=== PATIENT | female | born 1940 | race Caucasian/White ===

== ENCOUNTER → 2023-11-07 14:10 | Outpatient (REF) | payer MEDICARE, SELFPAY | LOC: RAD 14:10 | PROVIDERS: ATTENDING PHYSICIAN Podiatrist Foot & Ankle Surgery; FAMILY PHYSICIAN Family Medicine | DX: E11.621 Type 2 diabetes mellitus with foot ulcer (principal); L97.522 Non-pressure chronic ulcer of other part of left foot with fat layer exposed | CPT/HCPCS: 93922; 93925 ==

== ENCOUNTER 2024-03-26 20:22 | Emergency (ER) | payer MEDICARE, SELFPAY ==
[2024-03-26 20:31] VITALS: BP 115/78
[2024-03-26] MEDS: KEFLEX 500 MG PO (22:44)
[2024-03-26 22:46] VITALS: BP 115/66
--- NOTE | 2024-03-26 22:55 | ED.SKININJ ---
HPI-Injury
General
Chief Complaint: Skin Surface Trauma
Source: patient
Exam Limitations: none
Time Seen by Provider: 03/26/24 22:13
Nursing documentation reviewed up to this point in time: agreed with
History of Present Illness-Injury
Is this injury a work related problem?: No
Is pt an associate of [facility]?: No
Initial Injury comments:
Table leaf accidentally fell onto her leg. She sustained a skin tear to left morales. Went to but was referred to ED. Brought self to ED for eval.
Past History
Past History
ED Past Medical History: CAD, HTN, Hypercholesterolemia, NIDDM and Other (Left carotid stenosis, bilateral subclavian artery stenosis 75% with the right subclavian with surgical mesh placed, on Plavix and Prednisone 5 mg daily since)
ED Past Surgical History: Other (L Carotid surg,bilateral subclavian artery stenosis 75% with the right subclavian with surgical mesh placed, on Plavix and Prednisone 5 mg daily since)
Social History
Tobacco: Former smoker
Alcohol: None
Drug: None
Personal:
Living: alone
Employment: Retired
Family History
Family History: Hypertension
Review of Systems
Review of Systems
Allergies reviewed?: Yes
All Other Systems: ROS reviewed and negative except as documented in HPI and ROS
Constitutional: Reports no symptoms
Musculoskeletal: Reports no symptoms
Skin: Reports other (skin tear left morales)
Neurological: Reports no symptoms
Psychiatric: Reports no symptoms
Skin Exam
Laceration
Left morales:
Length in cm: 4
Orientation: C shaped
Type of Laceration: simple
Any active bleeding?: no active bleeding
Distal skin color and temperature: normal-warm & good color
Normal distal neurovascular exam: Yes
Range of motion: full
Phy Exam
General Physical Exam
General Presentation: well appearing and no apparent distress
General age: appears stated age
General Skin: warm and dry
General Habitus: normal
General Mental: alert
Musculoskeletal Exam
Musculoskeletal Exam: full ROM (Ambulating without difficulty) and neuro vasc intact
Skin Exam
Skin Exam: normal color, warm/dry, no rash and laceration (skin tear left morales)
Psychiatric Exam
Psychiatric Exam: normal mood/affect
Course
Orders/Labs/Results
Orders:
Orders
03/26/24 22:41
Cephalexin Monohydrate [Keflex] 500 mg PO NOW STA
Vital Signs
Initial and Last Documented VS:
Initial Vital Signs
Temp Pulse Resp BP Pulse Ox
98.2 F 75 19 115/78 93
03/26/24 20:31 03/26/24 20:31 03/26/24 20:31 03/26/24 20:31 03/26/24 20:31
Last Documented Vital Signs
Temp Pulse Resp BP Pulse Ox
98.2 F 70 18 115/66 97
03/26/24 20:31 03/26/24 22:46 03/26/24 22:46 03/26/24 22:46 03/26/24 22:46
Procedures
Laceration Closure
Left Morales:
Status of Wound: clean
Description of Wound Edges: sharp
Preparation: cleaned with saline and cleaned with Betadine
Anesthesia: 1% Lidocaine
Revision/Debridement: routine- no revision
Wound exploration: explored to base- no FB and no tendon involvement
Type of Closure: single layer closure
Skin Closure Material: 4-0 prolene
*Critical Care Note
Total Time (30-74mins, 75-104mins- exclusive of procedures): Not Applicable
ED Attending Note
-
Portions of this chart may have been created with voice recognition software.� Occasional wrong word or��sound alike� substitutions may have occurred due to the inherent limitations of voice recognition software.
Discharge Plan
Departure
Patient Disposition: Home (Routine Discharge)
Date of Disposition: 03/26/24
Time of Disposition: 22:36
Patient with high blood pressure during this ER visit?: No
Condition: Good
Covid-19: Not Applicable
Discharge Problem:
Skin tear of left lower leg without complication
Instructions: Laceration Repair With Stitches (DC)
Prescriptions:
New
cephalexin 500 mg capsule
500 mg PO BID 7 Days Qty: 14 0RF
No Action
cholecalciferol (vitamin D3) 1,000 UNITS tablet
2,000 units PO DAILY
nitroglycerin 0.4 MG tablet, sublingual
0.4 mg sublingual [id number] PRN (Reason: chest pain ) Qty: 25 0RF
aspirin 81 MG tablet,chewable
81 mg PO DAILY 0RF
clopidogrel 75 MG tablet
75 mg PO DAILY Qty: 30 2RF
carvedilol 3.125 MG tablet
12.5 mg PO BID
prednisone 5 MG tablet
5 mg PO DAILY
acarbose 25 MG tablet
25 mg PO BID
tamsulosin 0.4 MG capsule
0.4 mg PO DAILY Qty: 14 0RF
oxycodone 5 mg tablet
5 mg PO Q8H PRN (Reason: pain) Qty: 10 0RF
ondansetron 4 mg tablet,disintegrating
4 mg PO Q8H 5 Days Qty: 15 0RF
cephalexin 500 mg capsule
500 mg PO TID 7 Days Qty: 21 0RF
Activity Restrictions/Additional Instructions:
Sutures can be removed in 7-10 days.
Interventions
Interventions:
*Risk Screen - Suicide Last Done: 03/26/24 22:46
*General Assessment Last Done: 03/26/24 22:46
*Neglect/Abuse Screening Last Done: 03/26/24 22:46
ED- Fall Risk Assessment Last Done: 03/26/24 22:46
*ED COVID-19 Vaccine History Last Done: 03/26/24 22:46
*Nursing Disposition Last Done: 03/26/24 22:46
ED-Skin Assessment Last Done: 03/26/24 22:46
Discharge Date and Time
Discharge Date/Time: 03/26/24 22:48
Print Language: TAJIK
== END 2024-03-26 22:48 | disposition home or self-care (01) ==
LOC: EMR 20:22
PROVIDERS: EMERGENCY PHYSICIAN Emergency Medicine; FAMILY PHYSICIAN Family Medicine
DX: S81.812A Laceration without foreign body, left lower leg, initial encounter (principal); W19.XXXA Unspecified fall, initial encounter; I25.10 Atherosclerotic heart disease of native coronary artery without angina pectoris; I65.22 Occlusion and stenosis of left carotid artery; I10 Essential (primary) hypertension; E78.00 Pure hypercholesterolemia, unspecified; E11.9 Type 2 diabetes mellitus without complications; Z87.891 Personal history of nicotine dependence
CPT/HCPCS: 99282; 12001

== ENCOUNTER 2024-05-27 10:33 | Emergency (ER) | payer MEDICARE, SELFPAY ==
[2024-05-27 10:37] VITALS: BP 173/74
[2024-05-27 11:06] VITALS: BP 163/60; BMI 34.6
--- NOTE | 2024-05-27 11:19 | ED.GENMED ---
History of Present Illness
General
Chief Complaint: Fall
Time Seen by Provider: 05/27/24 10:44
History of Present Illness
History of Present Illness:
84-year-old female with history of CAD status post stenting, hypertension, diabetes presenting after a fall. Patient reports prior arrival she tripped on a porch and fell forward onto her left ribs. Denies head injury or loss of consciousness.
Reports shortness of breath secondary to pain with deep inspiration. Also reports that she hit her extremity, suffer a skin tear. Tetanus is not up-to-date. She has been able to ambulate. Denies weakness or numbness or tingling to her
extremities. Denies neck pain. Denies visual changes. Denies additional medical complaints.
Past History
Past History
ED Past Medical History: CAD, HTN, Hypercholesterolemia, NIDDM and Other (Left carotid stenosis, bilateral subclavian artery stenosis 75% with the right subclavian with surgical mesh placed, on Plavix and Prednisone 5 mg daily since)
ED Past Surgical History: Other (L Carotid surg,bilateral subclavian artery stenosis 75% with the right subclavian with surgical mesh placed, on Plavix and Prednisone 5 mg daily since)
Social History
Tobacco: Former smoker
Alcohol: None
Drug: None
Personal:
Living: alone
Employment: Retired
Family History
Family History: Hypertension
Phy Exam
Physical Exam
Physical Exam:
General: Well-appearing, no clinical signs of dehydration, nontoxic and in no acute distress
HEENT: protecting airway
Neck: appears supple
CV: Normal heart rate, regular rhythm
Resp: No accessory muscle use, no increased work of breathing, lungs clear to auscultation bilaterally. Generalized tenderness to the left chest wall, anterior, mid axillary, inferior rib angles. No ecchymosis. No crepitus.
Abd: Soft and non-distended, no tenderness to palpation, normal bowel sounds
Extremities: No deformities, no swelling, no erythema, pulses and sensation intact
Neuro: alert, no focal neurologic deficit
: deferred
Rectal: deferred
Psych: Normal affect
Skin: Mild skin tear at the left morales with bleeding controlled.
Course
Orders/Labs/Results
Orders:
Orders
05/27/24 10:52
CT Chest With Iv Contrast Urgent
Comment:
Reason For Exam: fall, L-chest and rib pain
05/27/24 10:53
Electrocardiogram (*1) Stat
Reason for Study: Other
Other Reason for Exam: chest pain
EKG- Treatment ONCE
05/27/24 10:54
Ketorolac [Toradol] 15 mg IV NOW STA
05/27/24 11:23
Complete Blood Count/With Diff Urgent
Comprehensive Metabolic Panel Urgent
Troponin I Urgent
Abnormal Lab Results
05/27/24
11:23
RBC 3.58 L 10^6/uL
(4.20-5.40)
Hgb 11.7 L g/dL
(12.0-16.0)
Hct 33.8 L %
(37.0-47.0)
MCH 32.7 H pg
(27.0-31.0)
MPV 11.9 H fL
(7.4-10.4)
Absolute Lymphs (auto) 0.6 L 10^3/uL
(1.2-3.4)
Immature Gran % 0.6 H %
(0-0.5)
Neutrophils % 80.2 H %
(42.2-75.2)
Lymphocytes % 9.5 L %
(20.5-51.1)
Glucose 240 H mg/dl
(70-99)
Total Protein 6.1 L g/dl
(6.3-8.2)
05/27/24 11:23
05/27/24 11:23
Vital Signs
Initial and Last Documented VS:
Initial Vital Signs
Temp Pulse Resp BP Pulse Ox
97.8 F 70 18 173/74 97
05/27/24 10:37 05/27/24 10:37 05/27/24 10:37 05/27/24 10:37 05/27/24 10:37
Last Documented Vital Signs
Temp Pulse Resp BP Pulse Ox
97.8 F 57 18 171/52 94
05/27/24 10:37 05/27/24 12:06 05/27/24 12:06 05/27/24 12:06 05/27/24 12:06
MDM/Problems Addressed
MDM/Problems Addressed:
84-year-old female with history of CAD status post stenting, hypertension presenting after a mechanical fall with left-sided chest and rib pain. Vital signs are significant for high blood pressure.
On exam, patient well-appearing, no acute distress or discomfort. No respiratory distress. Primary survey is intact. On secondary survey, no signs of head trauma, no cervical tenderness. GCS is 15. Generalized tenderness to the left chest wall
at the anterior region, mid axillary region and inferior rib angles. No crepitus. Suspect rib contusion versus rib fracture. Patient notes chest pain, suspect secondary to rib injury. Given cardiac history, EKG obtained, nonischemic. Will
screen with laboratory analysis. Patient is declining tetanus vaccination at this time. Toradol administered for pain. No significant signs of injuries to the abdomen/pelvis/extremities
14:00 -patient CT without acute pathology. No significant fractured ribs or lung injury. Labs unremarkable. Incidental pulmonary nodule which patient is aware of. Feel stable for discharge with continued outpatient supportive therapy. Will
provide incentive spirometry. Otherwise feel stable for discharge. Return precautions discussed and patient verbalized understanding
*EKG
Interpreted by ED Provider?: Yes
EKG Intrepretation Date: 05/27/24
EKG Intrepretation Time: 11:26
Interpretation: normal
Comparison EKG: no changes
Heart Rate: 64
Rate: normal
Rhythm: sinus
[place]: normal axis
Interval: normal interval
QRS Pattern: normal QRS
Ischemia: no ischemia
*Critical Care Note
Total Time (30-74mins, 75-104mins- exclusive of procedures): Not Applicable
ED Attending Note
-
Portions of this chart may have been created with voice recognition software.� Occasional wrong word or��sound alike� substitutions may have occurred due to the inherent limitations of voice recognition software.
Discharge Plan
Departure
Prescriptions:
No Action
cholecalciferol (vitamin D3) 1,000 UNITS tablet
2,000 units PO DAILY
nitroglycerin 0.4 MG tablet, sublingual
0.4 mg sublingual [id number] PRN (Reason: chest pain ) Qty: 25 0RF
aspirin 81 MG tablet,chewable
81 mg PO DAILY 0RF
clopidogrel 75 MG tablet
75 mg PO DAILY Qty: 30 2RF
carvedilol 3.125 MG tablet
12.5 mg PO BID
prednisone 5 MG tablet
5 mg PO DAILY
acarbose 25 MG tablet
25 mg PO BID
tamsulosin 0.4 MG capsule
0.4 mg PO DAILY Qty: 14 0RF
oxycodone 5 mg tablet
5 mg PO Q8H PRN (Reason: pain) Qty: 10 0RF
ondansetron 4 mg tablet,disintegrating
4 mg PO Q8H 5 Days Qty: 15 0RF
cephalexin 500 mg capsule
500 mg PO TID 7 Days Qty: 21 0RF
cephalexin 500 mg capsule
500 mg PO BID 7 Days Qty: 14 0RF
Referrals:
Lui Cherry MD [Family Provider] -
Interventions
Interventions:
*Risk Screen - Suicide Last Done: 05/27/24 11:06
*General Assessment Last Done: 05/27/24 11:06
*Neglect/Abuse Screening Last Done: 05/27/24 11:06
ED- Fall Risk Assessment Last Done: 05/27/24 11:06
*ED COVID-19 Vaccine History Last Done: 05/27/24 11:06
ED-Musculoskeletal Assessment Last Done: 05/27/24 11:06
ED- Neurological Assessment Last Done: 05/27/24 11:06
ED-Skin Assessment Last Done: 05/27/24 11:06
Discharge Date and Time
Print Language: TURKISH
[2024-05-27] MEDS: TORADOL 15 MG IV (11:25)
[2024-05-27 11:39] LABS: % Basophils 0.6 % (0-2); % Eosinophils 1.7 % (0-6); % Immature Granulocytes 0.6 % (0-0.5); % Lymphocytes 9.5 % (20.5-51.1); % Monocytes 7.4 % (1.7-9.3); % Neutrophils 80.2 % (42.2-75.2); Absolute Eosinophils 0.1 10^3/uL (0-0.7); Absolute Lymphocytes 0.6 10^3/uL (1.2-3.4); Absolute Monocytes 0.5 10^3/uL (0.1-0.6); Absolute Neutrophils 5.3 10^3/uL (1.4-6.5); Hematocrit 33.8 % (37.0-47.0); Hemoglobin 11.7 g/dL (12.0-16.0); Mean Corp Hgb Conc. 34.6 g/dL (33.0-37.0); Mean Corpuscular Hgb 32.7 pg (27.0-31.0); Mean Corpuscular Volume 94.4 fL (81.0-99.0); Mean Platelet Volume 11.9 fL (7.4-10.4); Nucleated Red Blood Cells % 0 %; Platelet Count 170 10^3/uL (130-400); Red Blood Cell Count 3.58 10^6/uL (4.20-5.40); Red Cell Dist. Width 13.3 % (11.5-14.5); White Blood Cell Count 6.6 10^3/uL (4.8-10.8)
[2024-05-27 11:51] LABS: ALT (SGPT) 17 U/L (0-35); AST (SGOT) 22 U/L (14-36); Albumin 3.9 g/dl (3.5-5.0); Alkaline Phosphatase 75 U/L (38-126); Blood Urea Nitrogen 8 mg/dl (7-17); Calcium 9.9 mg/dl (8.4-10.2); Carbon Dioxide 27 mmol/L (22-30); Chloride 102 mmol/L (98-107); Estimated Creatinine Clearance 67 ml/min; Glucose 240 mg/dl (70-99); Potassium 4.1 mmol/L (3.5-5.1); Sodium 139 mmol/L (135-145); Total Bilirubin 0.8 mg/dl (0.2-1.3); Total Protein 6.1 g/dl (6.3-8.2); eGFR > 60.00
[2024-05-27 12:03] LABS: Troponin I < 0.012 ng/ml
[2024-05-27 12:06] VITALS: BP 171/52
[2024-05-27 13:00] VITALS: BP 186/55
[2024-05-27 14:00] VITALS: BP 203/72
[2024-05-27 14:11] VITALS: BP 197/65
== END 2024-05-27 14:37 | disposition home or self-care (01) ==
LOC: EMR 10:33
PROVIDERS: EMERGENCY PHYSICIAN Student in an Organized Health Care Education/Training Program; FAMILY PHYSICIAN Family Medicine
DX: S20.20XA Contusion of thorax, unspecified, initial encounter (principal); W19.XXXA Unspecified fall, initial encounter; I25.10 Atherosclerotic heart disease of native coronary artery without angina pectoris; I10 Essential (primary) hypertension; E11.9 Type 2 diabetes mellitus without complications; E78.00 Pure hypercholesterolemia, unspecified; Z82.49 Family history of ischemic heart disease and other diseases of the circulatory system; Z87.891 Personal history of nicotine dependence; Z95.5 Presence of coronary angioplasty implant and graft
CPT/HCPCS: 99284; 71260; 80053; 84484; 85025; 93005; Q9967

== ENCOUNTER 2024-09-11 23:57 | Observation (INO) | payer MEDICARE, SELFPAY ==
[2024-09-11] VITALS (9 sets, daily range): BP systolic 166–224; BP diastolic 57–100; PULSE 69–76; BMI 33.2
--- NOTE | 2024-09-11 19:00 | ED.GENMED ---
History of Present Illness
General
Chief Complaint: Dizziness
Source: patient
Exam Limitations: none
Time Seen by Provider: 09/11/24 18:48
History of Present Illness
History of Present Illness:
This is a 84 year old female that comes in by ambulance with c/o dizziness and vomiting. States that she had COVID on Sep 06 and tested negative today. States that she started at 4pm today with vomiting and the room spinning around 4pm. States that
she vomited about 4 times. Denies any fever, chills, chest pain, SOB, abd pain, diarrhea, headache, urinary burning.
Past History
Past History
ED Past Medical History: CAD, GERD, HTN, Hypercholesterolemia, NIDDM, MD, Psychiatric (Anxiety, ) and Other (UTi, )
ED Past Surgical History: Cardiac (Stents x 2), Orthopedic ( bilateral subclavian artery stenosis 75% with the right subclavian with surgical mesh placed, Left knee replacement) and Other (L Carotid surg, cataracts, )
Social History
Tobacco: Former smoker
Alcohol: Daily (beer X 2)
Drug: None
Personal:
Living: alone
Employment: Retired
Family History
Family History: Hypertension
Review of Systems
Review of Systems
All Other Systems: ROS reviewed and negative except as documented in HPI and ROS
Constitutional: Reports no symptoms; Denies fever or chills
EENT: Reports no symptoms
Respiratory: Reports no symptoms; Denies cough or trouble breathing
Cardiac: Reports no symptoms; Denies chest pain
ABD/GI: Reports nausea and vomiting; Denies abdominal pain or diarrhea
: Reports no symptoms; Denies dysuria, frequency or urgency
Musculoskeletal: Reports no symptoms
Skin: Reports no symptoms
Neurological: Reports dizzy (room spinning); Denies headache
Psychiatric: Reports no symptoms
Phy Exam
General Physical Exam
General Presentation: no apparent distress
General age: appears stated age
General Skin: warm and dry
General Habitus: elderly
General Mental: alert
General Hydration: dry mucous membranes
ENT Exam
ENT Exam: TM's normal, pharynx normal and neck supple
Eye Exam
Eye Exam: EOMI
Cardiovascular Exam
Cardiovascular Exam: regular rate/rhythm, no edema, no murmur and normal peripheral pulses
Pulmonary Exam
Pulmonary Exam: lungs clear, no respiratory distress, no rales, chest non tender, no crackles, no rhonchi, no wheezing and no cough
Gastrointestinal Exam
Gastrointestinal Exam: normal bowel sounds, non tender, soft, no organomegaly, no pulsatile mass and non distended
NIH Stroke Score
Level of Consciousness: 0 - Alert
LOC questions: 0-Answers both correctly
LOC Commands: 0-Performs both correctly
Best Gaze: 0-Normal
Visual Geiger: 1=Partial hemianopia (Right sided, unable to see fingers until almost in front of face)
Facial palsy: 0=Normal, symmetrical
Motor - Right Arm: 0=No drift 10 seconds
Motor - Left Arm: 0=No drift 10 seconds
Motor - Right Le-No drift 5 seconds
Motor - Left Le-No drift 5 seconds
Limb Ataxia: 0-Absent
Sensation: 0-Normal
Best Language: 0-No aphasia
Dysarthria: 0-Normal
Extinction and Inattention: 0-No abnormality
Total Score:: 1
Musculoskeletal Exam
Musculoskeletal Exam: full ROM and no edema
Skin Exam
Skin Exam: normal color, warm/dry, no rash and no petechia
Psychiatric Exam
Psychiatric Exam: normal mood/affect
Course
Orders/Labs/Results
Orders:
Orders
09/11/24 18:58
0.9% Sodium Chloride 1000 ml [Nss] 1,000 ml IV BOLUS
Ondansetron Injectable [Zofran] 4 mg IV NOW STA
09/11/24 19:00
CT Head W/o Iv Contrast Urgent
Comment:
Reason For Exam: dizzy
09/11/24 19:01
Meclizine [Antivert] 25 mg PO NOW STA
09/11/24 19:09
Electrocardiogram (*1) Urgent
Reason for Study: Vertigo / Dizzy
EKG- Treatment ONCE
09/11/24 19:40
Complete Blood Count/With Diff Urgent
Comprehensive Metabolic Panel Urgent
Troponin I Urgent
09/11/24 21:35
Carvedilol [Coreg] 12.5 mg PO NOW STA
09/11/24 22:11
Urinalysis Reflex To Culture Urgent
Date Specimen was Collected: 09/11/24
Time Specimen was Collected: 22:08
Urine Microscopic Reflex Cult Urgent
09/11/24 22:31
HydrALAZINE [Apresoline] 5 mg IV NOW STA
09/11/24 22:59
Troponin I Urgent
09/11/24 23:00
Flush (0.9% Sodium Chloride) [Flush (Nss)] See Dose Instructions IV PER PROTOCOL
09/11/24 23:03
Orthostatic Vital Signs As Directed
Orthostatic VS Frequency: Now
09/11/24 23:39
Admit/Transfer Patient As Directed
Co-Sign Provider:
Level of Care: Observation services
Assign to:: Telemetry
Physician / Group: Lory Rios
Diagnosis: vertigo
Reason for Telemetry: Other
Other Reason for Telemetry: acute dizziness
Date to Stop Telemetry: 09/13/24
Time to Stop Telemetry: 11:00
09/11/24 23:40
PRN Pain Medication Management As Directed
May give lesser potent ordered pain med per pt: Yes
preference::
Protocol:: Medication orders for pain may be administered in a
manner that supports deferring to patient preference
when the pt is:
- Requesting an ordered lesser potent pain medication.
Least to most potent pain medications are defined
as: acetaminophen < NSAID < tramadol < opioids
(morphine, oxycodone, hydromorphone).
- Requesting a lesser dose of the same medication IF
ORDERED.
- Requesting a less intrusive route of administration
if both routes are prescribed by the provider (PO <
IV).
09/11/24 23:41
COVID-19 Antigen Urgent
Source: Nasal Swab
09/11/24 23:42
Code Status As Directed
Resuscitation Status: Do not resuscitate
Reached after discussion with pt or family/Healthcare POA: Yes
Decision communicated with: Patient
DNR Bracelet Application ONCE
09/12/24 00:48
Meclizine [Antivert] 25 mg PO Q8HPRN PRN
Nitroglycerin Sublingual [Nitrostat (Sublingual)] 0.4 mg SL [id number] PRN
09/12/24 00:48
Consult Notification Routine
Specialty to Notify: Neurology
NEUROLOGY CONSULT Routine
Consulting Provider: Andrew aMrtínez
Was physician already notified: No
Reason for consult: acute onset dizziness
Activity As Directed
Activity Level: With Assistance
Vital Signs As Directed
Frequency: Per unit guidelines
Physical Therapy Consult [Pt Eval And Treat] Routine
Treatment: vertigo
Activity Level: With Assistance
DX Deep Vein Thrombosis Video Routine
09/12/24 06:00
Basic Metabolic Panel IN AM
Complete Blood Count/No Diff IN AM
09/12/24 08:00
Ascorbic Acid [Vitamin C] 500 mg PO DAILY
Aspirin Chewable [Low Strength Aspirin] 81 mg PO DAILY
Carvedilol [Coreg] 12.5 mg PO BID
Cholecalciferol (Vitamin D3) [VITAMIN D3 (cholecalciferol)] 50 mcg PO DAILY
Clopidogrel Bisulfate [Plavix] 75 mg PO DAILY
Prednisone [Deltasone] 5 mg PO DAILY
acarbose 25 mg PO BID
09/12/24 Dinner
2200 calorie (18 carb) Diabetic
At Your Request: Full Participation
Does patient need a safe tray?: No
09/12/24 18:00
Enoxaparin Sodium [Lovenox] 40 mg SC QPM
09/13/24 11:00
DC Protocol for Telemetry ONCE
Abnormal Lab Results
09/11/24 09/11/24 09/11/24
19:40 22:11 22:57
RBC 3.93 L 10^6/uL
(4.20-5.40)
MCHC 32.9 L g/dL
(33.0-37.0)
MPV 11.0 H fL
(7.4-10.4)
Absolute Lymphs (auto) 0.9 L 10^3/uL
(1.2-3.4)
Lymphocytes % 15.5 L %
(20.5-51.1)
Glucose 172 H mg/dl
(70-99)
Troponin I
Urine Ketones 2+ A
(Negative)
Leukocyte Esterase Rfl Trace A
(Negative)
POC Glucose 198 H mg/dl
(70-99)
09/11/24
22:59
RBC
MCHC
MPV
Absolute Lymphs (auto)
Lymphocytes %
Glucose
Troponin I 0.064 H* D ng/ml
Urine Ketones
Leukocyte Esterase Rfl
POC Glucose
09/11/24 19:40
09/11/24 19:40
Hyperglycemia. (patient is a diabetic), Troponin 0.019
Second Troponin 0.064, Urine negative for infection.
Vital Signs
Initial and Last Documented VS:
Initial Vital Signs
Temp Pulse Resp BP Pulse Ox
97.6 F 65 18 224/62 96
09/11/24 18:43 09/11/24 18:43 09/11/24 18:43 09/11/24 18:43 09/11/24 18:43
Last Documented Vital Signs
Temp Pulse Resp BP Pulse Ox
97.7 F 63 17 140/41 93
09/11/24 19:46 09/12/24 00:45 09/12/24 00:45 09/12/24 00:00 09/12/24 00:30
MDM/Problems Addressed
Differential Diagnosis Includes:
Dehydration, Vertigo, UTI
MDM/Problems Addressed:
This is a 84 year old female that comes in by ambulance with c/o vomiting and dizziness. states that this started at 4pm today.
Will check labs, Urine, Give IV fluids. CT head, Give Antivert, Zofran
Chronic conditions affecting care: CAD
Acute Exacerbation and/or Progression of Chronic Illness:
NA
*Radiology
Radiology exam reviewed: radiology read reviewed (CT head-No acute intracranial abnormality noted)
*Pulse Oximetry
Patient hypoxic: no
*EKG
Interpreted by ED Provider?: Yes
Heart Rate: 67
Rate: normal
Rhythm: sinus
[place]: left axis deviation
Interval: normal interval
QRS Pattern: normal QRS
Ischemia: no ischemia
*Tactical Debriefer Officer Interpretation
Rate: normal
Heart Rate: 64
Rhythm: sinus
*Critical Care Note
Total Time (30-74mins, 75-104mins- exclusive of procedures): Not Applicable
ED Attending Note
-
Portions of this chart may have been created with voice recognition software.� Occasional wrong word or��sound alike� substitutions may have occurred due to the inherent limitations of voice recognition software.
Discharge Plan
Departure
Patient Disposition: Admit
Date of Disposition: 09/11/24
Time of Disposition: 22:32
Admit to: Telemetry
Presentation/result/management discussed w/ accepting MD/DO: Hospitalist
Patient with high blood pressure during this ER visit?: Yes
Condition: Good
Covid-19: Not Applicable
Discharge Problem:
Dizziness
Interventions
Interventions:
*Risk Screen - Suicide Last Done: 09/11/24 18:49
*General Assessment Last Done: 09/11/24 18:49
*Neglect/Abuse Screening Last Done: 09/11/24 18:49
*ED COVID-19 Vaccine History Last Done: 09/11/24 18:49
ED- Neurological Assessment Last Done: 09/11/24 19:52
ED- Cardiac Assessment Last Done: 09/11/24 19:52
ED Swallowing Screen Last Done: 09/11/24 19:56
[2024-09-11] MEDS: NSS 1000 IV (19:45)
[2024-09-11] MEDS: ZOFRAN 4 MG IV (19:48)
[2024-09-11 19:51] LABS: % Basophils 0.4 % (0-2); % Immature Granulocytes 0.2 % (0-0.5); % Lymphocytes 15.5 % (20.5-51.1); % Monocytes 7.7 % (1.7-9.3); % Neutrophils 74.2 % (42.2-75.2); Absolute Eosinophils 0.1 10^3/uL (0-0.7); Absolute Lymphocytes 0.9 10^3/uL (1.2-3.4); Absolute Monocytes 0.4 10^3/uL (0.1-0.6); Absolute Neutrophils 4.1 10^3/uL (1.4-6.5); Hematocrit 37.1 % (37.0-47.0); Hemoglobin 12.2 g/dL (12.0-16.0); Mean Corp Hgb Conc. 32.9 g/dL (33.0-37.0); Mean Corpuscular Volume 94.4 fL (81.0-99.0); Nucleated Red Blood Cells % 0 %; Platelet Count 168 10^3/uL (130-400); Red Blood Cell Count 3.93 10^6/uL (4.20-5.40); Red Cell Dist. Width 14.1 % (11.5-14.5); White Blood Cell Count 5.5 10^3/uL (4.8-10.8)
[2024-09-11] MEDS: ANTIVERT 25 MG PO (19:57)
[2024-09-11 20:05] LABS: ALT (SGPT) 17 U/L (0-35); AST (SGOT) 20 U/L (14-36); Albumin 4.1 g/dl (3.5-5.0); Alkaline Phosphatase 81 U/L (38-126); Blood Urea Nitrogen 10 mg/dl (7-17); Carbon Dioxide 28 mmol/L (22-30); Chloride 101 mmol/L (98-107); Estimated Creatinine Clearance 65 ml/min; Glucose 172 mg/dl (70-99); Potassium 3.9 mmol/L (3.5-5.1); Sodium 137 mmol/L (135-145); Total Bilirubin 0.8 mg/dl (0.2-1.3); Total Protein 6.3 g/dl (6.3-8.2); eGFR > 60.00
[2024-09-11 20:17] LABS: Troponin I 0.019 ng/ml
[2024-09-11] MEDS: COREG 12.5 MG PO (21:59)
[2024-09-11 22:36] LABS: Urine Albumin Negative (Neg - Trace); Urine Bilirubin Negative (Negative); Urine Character Clear (Clear); Urine Color Yellow; Urine Glucose Negative (Negative); Urine Ketone 2+ (Negative); Urine Leukocyte Trace (Negative); Urine Nitrite Negative (Negative); Urine Occult Blood Negative (Negative); Urine Specific Gravity 1.015 (<1.030); Urine Urobilinogen Negative (Neg - 1+)
--- NOTE | 2024-09-11 22:36 | HPS.HSE ---
Addendum entered and electronically signed by Lory Rios, 09/12/24 01:25:
Updates:
#Re: Pulm nodule-pt is aware of this, and has had several CT scans since 1999, and is being followed OP-she discussed with me that she does not want to f/u with PET scan as she states the nodule 'has been followed and stable for years.'
#PMR
-on chronic Prednisone 5 mg daily, will continue
#Trop delta- no CP at this time, possibly demand ischemia due to HTN urgency. BP stable, repeat trop in am.
Addendum entered and electronically signed by Lory Rios, DO 09/12/24 01:13:
Pt is seen and examined. I have reviewed the patient with Dawn, and agree with her history and physical, assessment and plan of care as per below, with following updates:
COVID negative here, no URI symptoms currently. Difficulty walking due to vertigo, improving in ED post meclizine, SBP high in 200s in ED, improving p IV Hydralazine once, plus home BP meds in ED
HTN and otherwise VSS/AF, orthostatics negative
Neuro grossly intact, no focal deficits
CV RRR no m/r/g
Lungs CTA b/l no w/w/r
HEENT 2 beats horizontal nystagmus to the left on exam
Labs reviewed, studies reviewed.
#Pulmonary Nodule:
Upon review of chart, pt noted to have letter sent for patient to follow-up stating:
pulmonary nodule seen on an imaging study done on 05/27/24 in the [facility] Emergency Room.
This was reviewed by the [facility] Pulmonary Nodule Advisory Board and the following recommendation was made:
Recommendation: PET/CT - now and follow up with a Receiver Dispatcher - will sign this out to primary team to follow up and make sure patient is aware to schedule f/u apt. Will require OP Pulm if she has not already seen.
#Dizziness, possibly due to vertigo, post-viral syndrome from COVID, versus due to HTN emergency, less likely neurological etiology
#HTN emergency
-BP improved p hydralazine and Coreg
-cont home meds, monitor
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
-Neuro consultation to address if further imaging (consider MRI brain) pending clinical course
-PT , vertigo PT evaluation
-meclizine prn
Original Note:
Family Physician
-
Family Physician: Lui Cherry
Chief Complaint
-
Dizziness
History of Present Illness
Patient is a 84-year-old female with past medical history significant for hypertension, hyperlipidemia, diabetes, and hx CA who presented to [place] ED for evaluation of acute onset dizziness. Patient stated she was at [facility] with
granddaughter all day, went home feel asleep on couch and when she woke and got up to go to kitchen she had acute onset dizziness with room spinning. During this episode she had an episode of emesis. She then called 911 to bring to ED. While in the
ED she requested to get up to go to the bathroom where she had a second episode of dizziness and room spinning, nursing got back to the stretcher and symptoms have since subsided. Patient states she was positive for covid approximately 1 week ago
and tested today and was negative.
Medical History
Past Medical History
Past Medical History: Reports Other
Additional Past Medical History:
hypertension
hyperlipidemia
diabetes
hx CA
Past Surgical History: Reports Other
Additional Past Surgical History:
Carotid surgery
Subclavian blockage
Left knee replacement
Social History
Tobacco: Former Smoker
Alcohol: Daily (2 beers every night with dinner)
Drug: None
Living: Alone
Employment: Retired
Family History
Family History: Not pertinent
Allergies / Home Medications
Allergies reflects when Allergies were last updated in [facility].
Home Medications with original date entered in [facility]
Allergy/Medication List:
Allergies
Allergy/AdvReac Type Severity Reaction Status Date / Time
acetaminophen [From Tylenol] Allergy 'makes me Verified 09/11/24 18:43
sick to my
stomach'
ciprofloxacin [From Cipro] Allergy Anaphylaxis Verified 09/11/24 18:43
latex [Latex] Allergy Itching Verified 09/11/24 18:43
metformin Allergy muscle Verified 09/11/24 18:43
aches
oxycodone Allergy Nausea / Verified 09/11/24 18:43
Vomiting
Hdsrnkm-PUL-LeK Reductase Allergy RABDO Verified 09/11/24 18:43
Inhibitor
[Ifjxupr-Ldk-Nwe Reductase
Inhibitor]
Sulfa (Sulfonamide Allergy Unknown Verified 09/11/24 18:43
Antibiotics)
sulfamethoxazole Allergy Rash/N/V Verified 09/11/24 18:43
[From Bactrim]
tramadol Allergy Nausea / Verified 09/11/24 18:43
Vomiting
trimethoprim [From Bactrim] Allergy Rash/N/V Verified 09/11/24 18:43
Home Medications
aspirin 81 mg chewable tablet 81 mg PO DAILY 08/03/18
clopidogrel 75 mg tablet 75 mg PO DAILY #30 tabs 08/03/18
nitroglycerin 0.4 mg sublingual tablet 0.4 mg sublingual [id number] PRN chest pain ##25 08/03/18
prednisone 5 mg tablet 5 mg PO DAILY 12/24/19
acarbose 25 mg tablet 25 mg PO BID 03/25/21
ascorbic acid (vitamin C) 500 mg tablet (Vitamin C) 500 mg PO DAILY 09/11/24
carvedilol 12.5 mg tablet 12.5 mg PO BID 09/11/24
cholecalciferol (vitamin D3) 50 mcg (2,000 unit) tablet (Vitamin D3) 50 mcg PO DAILY 09/11/24
Review of Systems
-
History Source: Patient
Constitutional: Reports No Symptoms
EENT: Reports No Symptoms
Respiratory: Reports No Symptoms
Cardiac: Reports No Symptoms
Abdomen/GI: Reports Vomiting
: Reports No Symptoms
Musculoskeletal: Reports No Symptoms
Skin: Reports No Symptoms
Neurological: Reports Dizzy
Endocrine: Reports No Symptoms
Hematologic/Lymphatic: Reports No Symptoms
Psych: Reports No Symptoms
Physical Exam
Vital Signs
Vital Signs
Temp Pulse Resp BP Pulse Ox
97.7 F 72 17 190/100 96
09/11/24 19:46 09/11/24 22:00 09/11/24 22:00 09/11/24 22:00 09/11/24 22:00
Physical Exam
General: Well Developed, Well Nourished, No Apparent Distress, Comfortable and Conversant
HEENT: NormoCephalic, Moist mucous membranes, Atraumatic, PERRLA, Arispe Conjunctivae, Nose Appears Normal and Ears Appear Normal
Respiratory: Clear and Non Labored Respirations; No Wheezes, Rales, Rhonchi or Crackles
Cardiac: S1/S2 and Regular Rhythm; No Murmur, Rub or Gallop
Breast: Deferred by me
GI: Soft, Non Tender, Non Distended and Normal Bowel Sounds; No Organomegaly
Rectal: Deferred by Provider
Genito-urinary: Deferred by me
Musculoskeletal: No Clubbing, No Cyanosis and No Edema
Skin: Warm and IV/Catheter Site; No Rash
Neuro: Awake, AO x 3 and Nonfocal/grossly intact
Hematologic/Lymphatic: No Lymphadenopathy
Psych: Calm and Intact Judgment/Insight
Laboratory Results
-
09/11/24 19:40
09/11/24 19:40
Laboratory Results
Total Bilirubin 0.8 mg/dl (0.2-1.3) 09/11/24 19:40
AST 20 U/L (14-36) 12/10/24 19:40
ALT 17 U/L (0-35) 09/11/24 19:40
Alkaline Phosphatase 81 U/L (38-126) 09/11/24 19:40
Troponin I 0.019 ng/ml 09/11/24 19:40
Data Reviewed
-
CT Scan: Report Reviewed by me (Head: No acute intracranial abnormality noted.)
Medical Tests (Nuc Med, Echo, EKG etc): Report Reviewed by me (EKG: NORMAL SINUS RHYTHM)
Lab Data: Labs Reviewed by me (trop 0.019, )
Impression/Plan
-
IMPRESSION/PLAN:
#dizziness/vertigo
patient describes room spinning dizziness following change in position from laying to standing
Head CT: No acute intracranial abnormality noted
EKG: NORMAL SINUS RHYTHM
- Admit to telemetry
- Orthostatic VS
- Meclizine PRN
- Neuro Consult
- Consider MRI
- PT consult for vertigo
#hypertension
- continue carvedilol
#diabetes
- continue acarbose
- AccuChecks AC & HS
#hyperlipidemia
#hx CA
- continue aspirin and clopidogrel
- continue PRN Nitro
Code Status: DNR
DVT Prophylaxis: Lovenox Sq
[2024-09-11 22:59] LABS: Glucose - Point of Care 198 mg/dl (70-99)
[2024-09-11 23:18] LABS: Urine Squamous Cell 21-25 /LPF (Few)
[2024-09-11 23:19] LABS: Urine Red Blood Cell 0-2 /HPF (0-2)
[2024-09-12] VITALS (11 sets, daily range): BP systolic 130–171; BP diastolic 41–83; BMI 33.8
[2024-09-12 00:38] LABS: COVID-19 Antigen Negative (Negative)
[2024-09-12 01:08] LABS: Troponin I 0.064 ng/ml
[2024-09-12 04:35] LABS: Hematocrit 33.6 % (37.0-47.0); Hemoglobin 11.6 g/dL (12.0-16.0); Mean Corp Hgb Conc. 34.5 g/dL (33.0-37.0); Mean Corpuscular Hgb 32.2 pg (27.0-31.0); Mean Corpuscular Volume 93.3 fL (81.0-99.0); Mean Platelet Volume 11.3 fL (7.4-10.4); Platelet Count 169 10^3/uL (130-400); Red Cell Dist. Width 14.2 % (11.5-14.5); White Blood Cell Count 6.2 10^3/uL (4.8-10.8)
[2024-09-12 04:50] LABS: Blood Urea Nitrogen 9 mg/dl (7-17); Calcium 8.5 mg/dl (8.4-10.2); Carbon Dioxide 28 mmol/L (22-30); Chloride 103 mmol/L (98-107); Estimated Creatinine Clearance 66 ml/min; Glucose 155 mg/dl (70-99); Potassium 4.1 mmol/L (3.5-5.1); Sodium 137 mmol/L (135-145); eGFR > 60.00
[2024-09-12 05:11] LABS: Troponin I 0.051 ng/ml
[2024-09-12] MEDS: LOW STRENGTH ASPIRIN 81 MG PO (07:59)
[2024-09-12] MEDS: VITAMIN C 500 MG PO (07:59)
[2024-09-12] MEDS: DELTASONE 5 MG PO (07:59)
[2024-09-12] MEDS: PLAVIX 75 MG PO (07:59)
[2024-09-12] MEDS: PRECOSE 25 MG PO ×2 (07:59→18:01)
[2024-09-12] MEDS: VITAMIN D3 (cholecalciferol) 50 MCG PO (07:59)
[2024-09-12] MEDS: COREG 12.5 MG PO ×2 (07:59→20:07)
--- NOTE | 2024-09-12 09:21 | W.PN.HOSP.TC ---
Today's Communication/Plan
-
.
Assessment / Plan
Assessment / Plan
Dizziness from vertigo vs Hypertensive emergency versus postviral syndrome from COVID?:
- head CT normal
- Ekg normal
- Orthostatic vitals
- Neurology was consulted
- Meclizine PRN
- PT/OT ordered and they said BPPV and Vestibular neuritis testing negative and recommend walker
-Continue carvedilol and better control of blood pressure
Pulmonary nodule:
-Patient does not want to follow-up for pulmonary nodule that was seen on an imaging study done on 05/27/2024 at [facility].
hypertension
- Today is 158/83
- continue carvedilol
diabetes:
- Has been on acarbose for 5 years
-Continue acarbose
hyperlipidemia:
-Patient has an allergy to statins because it caused rhabdomyolysis
-Consider alternatives
Polymyalgia Rheumatica
- Oral prednisone 5 mg, continue
CVD:
- continue aspirin and clopidogrel
- continue nitro as needed
Anticipated Discharge: Within 24 hours
Subjective/Interval History
-
Date of Service: September 12, 2024
84-year-old female, DNR, with past medical history for oli-ypyvddl-uuxtisywi diabetes mellitus, hypertension, hyperlipidemia, history of myocardial infarction most recent in 2018 presented with acute onset dizziness. The dizziness lasted for just
1 day. The dizziness was associated with 1 episode of vomiting she then called 911 and presented herself to the ED where she had a second episode of dizziness and she felt the room spinning. No previous history of any similar complaint in the
past. She states that she recently tested positive for COVID approximately week ago and was tested negative in the hospital. On admission blood pressure was 224/62. Troponins were 0.064 and 0.051 were mildly elevated.
Objective Data
-
Labs:
Laboratory Results
09/12/24
04:26
WBC 6.2
Hgb 11.6 L
Hct 33.6 L
Plt Count 169
Sodium 137
Potassium 4.1
Chloride 103
Carbon Dioxide 28
BUN 9
Creatinine 0.5 L
Glucose 155 H
Calcium 8.5
Vital Signs:
Vital Signs
Temp Pulse Resp BP Pulse Ox
98.3 F 67 18 158/83 94
09/12/24 08:20 09/12/24 08:20 09/12/24 08:20 09/12/24 08:20 09/12/24 08:20
Review of Systems
-
History Source: Patient
Constitutional: Denies Fever, Chills or Weakness
Respiratory: Denies Cough or Trouble Breathing
Cardiac: Denies Chest Pain or Palpitations
Abdomen/GI: Denies Abdominal Pain, Vomiting, Diarrhea, Constipated or Hematemesis
Genitourinary: Denies Dysuria
Musculoskeletal: Denies Joint Pain
Physical Exam
-
General: Obese
Respiratory: Clear to Auscultation
Cardiac: Regular Rhythm
GI: Soft, Nontender, Nondistended and Normal Bowel Sounds
Musculoskeletal: No Clubbing, No Cyanosis, Edema, Left Upper Extrem and Edema, Right Lower Extrem
Neuro: Awake, Alert, Oriented and AO x 3
Data Reviewed
-
Medical Tests (Nuc Med, Echo etc): Image personally visualized and interpreted and Discussed with Physician
Labs: Labs Reviewed by me and Discussed with Physician
--- NOTE | 2024-09-12 12:44 | W.PN.UPDATE ---
Update Note
Progress Note Update
I saw and evaluated the patient. I reviewed the resident�s note and agree with findings and plan as documented in the resident�s note.
Denies vertigo/dizziness at this moment.
Gen: NAD, AAOx3.
Eyes: EOMI, PERRLA, no scleral icterus.
Neck: supple.
CV: RRR, +S1/S2, no m/r/g.
Resp: CTAB, no rales, wheezes, or rhonchi.
Abd: +BS, soft, NT, ND
Skin: No rashes.
Neuro: CN 2-12 intact, non-focal.
Psych: Normal mood and affect.
CT brain: No acute intracranial abnormality noted.
Dizziness/Vertigo:
-check MRI brain to assess for posterior CVA as etiology (pt states she may refuse)
-c/s neuro
-possibly due to hypertensive emergency (SBP 224 on admission)
-IV Hydralazine given on admission
-BP has improved
-cont Coreg
-add Norvasc 2.5mg daily
Other problems:
Chronic pulm nodule
Elevated troponin which likely represents acute nonischemic myocardial injury
PMR: cont prednisone
Obesity due to excess calories
DNR/Lovenox
Dispo: Medically cleared for d/c if MRI brain without acute CVA.
--- NOTE | 2024-09-12 13:59 | CM ---
Case management introduced self and role. Patient lives alone in a private home. Was independent before the incident. No +SDOHs. Active PCP and pharmacy. She wanted it to be know that she did not fall. She was extremely dizzy, got herself down to
the floor and crawled to her phone. Explained VERDUZCO to patient. She verbalized understanding and signed. Copy given to patient.
ANTICIPATED DISCHARGE PLAN: D/C after MRI to home, per hospitalist's note.
[2024-09-12] MEDS: NORVASC 2.5 MG PO (14:27)
[2024-09-12 16:56] LABS: Glucose - Point of Care 153 mg/dl (70-99)
[2024-09-12] MEDS: LOVENOX 40 MG SC (18:02)
[2024-09-12 21:37] LABS: Glucose - Point of Care 151 mg/dl (70-99)
[2024-09-13 03:10] VITALS: BP 133/57
[2024-09-13 07:00] VITALS: BP 164/67
[2024-09-13 07:39] LABS: Glucose - Point of Care 131 mg/dl (70-99)
[2024-09-13 07:50] LABS: Hematocrit 36.1 % (37.0-47.0); Hemoglobin 11.8 g/dL (12.0-16.0); Mean Corp Hgb Conc. 32.7 g/dL (33.0-37.0); Mean Corpuscular Hgb 31.7 pg (27.0-31.0); Mean Platelet Volume 11.3 fL (7.4-10.4); Platelet Count 164 10^3/uL (130-400); Red Blood Cell Count 3.72 10^6/uL (4.20-5.40); Red Cell Dist. Width 14.6 % (11.5-14.5); White Blood Cell Count 4.5 10^3/uL (4.8-10.8)
--- NOTE | 2024-09-13 07:58 | W.PN.HOSP.TC ---
Today's Communication/Plan
-
- possible discharge today
Assessment / Plan
Assessment / Plan
Dizziness from vertigo vs Hypertensive emergency versus postviral syndrome from COVID?:
-Patient refused to have MRI, wants a prescription for an open MRI
-Neurology consult still pending
- PT/OT ordered and they said BPPV and Vestibular neuritis testing negative and need to assess ambulation with a walker
- head CT normal
- Ekg normal
- Orthostatic vitals
- Meclizine PRN
-Continue carvedilo and Norvasc l and better control of blood pressure
Pulmonary nodule:
-Patient does not want to follow-up for pulmonary nodule that was seen on an imaging study done on 05/27/2024 at [facility].
hypertension
-Today is 133/57
- Patient was added on 2.5 Mg Norvasc yesterday and already on her home dose of Coreg, continue
diabetes:
- Has been on acarbose for 5 years
-Continue acarbose
hyperlipidemia:
-Patient has an allergy to statins because it caused rhabdomyolysis
-Consider alternatives
Polymyalgia Rheumatica
- Oral prednisone 5 mg, continue
CVD:
- continue aspirin and clopidogrel
- continue nitro as needed
DVT prophylaxis: Lovenox
DNR
Anticipated Discharge: Today
Subjective/Interval History
-
Date of Service: September 13, 2024
Patient systolic blood pressure was in the 170s over night and then stabilized after taking her dose of Coreg and is 133/57 today
No acute medical problems
Objective Data
-
Labs:
Laboratory Results
09/13/24
07:26
WBC 4.5 L
Hgb 11.8 L
Hct 36.1 L
Plt Count 164
Sodium Pending
Potassium Pending
Chloride Pending
Carbon Dioxide Pending
BUN Pending
Creatinine Pending
Glucose Pending
Calcium Pending
Vital Signs:
Vital Signs
Temp Pulse Resp BP Pulse Ox
98.5 F 67 16 133/57 94
09/13/24 03:10 09/13/24 03:10 09/13/24 03:10 09/13/24 03:10 09/13/24 03:10
I&O
09/12/24 09/13/24 09/14/24
06:59 06:59 06:59
Intake Total 960 / 960
Balance 960 / 960
Review of Systems
-
History Source: Patient
Constitutional: Denies Fever, Chills or Weakness
Respiratory: Denies Cough or Trouble Breathing
Cardiac: Denies Chest Pain or Palpitations
Abdomen/GI: Denies Abdominal Pain, Vomiting, Diarrhea, Constipated or Hematemesis
Genitourinary: Denies Dysuria
Musculoskeletal: Denies Joint Pain
Physical Exam
-
General: Obese
Respiratory: Clear to Auscultation
Cardiac: Regular Rhythm
GI: Soft, Nontender, Nondistended and Normal Bowel Sounds
Musculoskeletal: No Clubbing, No Cyanosis, Edema, Left Upper Extrem and Edema, Right Lower Extrem
Neuro: Awake, Alert, Oriented and AO x 3
Data Reviewed
-
Medical Tests (Nuc Med, Echo etc): Image personally visualized and interpreted and Discussed with Physician
Labs: Labs Reviewed by me and Discussed with Physician
--- NOTE | 2024-09-13 08:14 | W.DCSUMMARY ---
Addendum entered and electronically signed by Poncho Bowling MD, Resident 09/14/24 16:27:
patient was discharged on 09/14/2024, not on 09/13/2024.
Addendum entered and electronically signed by Brice Mireles MD 09/14/24 16:08:
Read, reviewed, and agree. See same day progress note for additional details.
Original Note:
Discharge Summary
Discharge Data
Date of Admission: 09/11/24
Date of Discharge: 09/14/24
-
Pending Results: No
Hospital Course
Discharging Physician : Dr. Brice Mireles
Disposition : Home
Primary care physician : Dr. Cherry
Principal Discharge diagnosis : Hypertensive Emergency
Chronic Discharge diagnosis : Pulmonary nodule, Hypertension, Diabetes mellitus type 2, Hyperlipidemia, Polymyalgia Rheumatica, Coronary vascular disease
Hospital Course : 84-year-old female, DNR, with past medical history for cdy-kulqhlr-obijeplnk diabetes mellitus, hypertension, hyperlipidemia, history of myocardial infarction most recent in 2018 presented with acute onset dizziness. The
dizziness lasted for just 1 day. The dizziness was associated with 1 episode of vomiting she then called 911 and presented herself to the ED where she had a second episode of dizziness and she felt the room spinning. No previous history of any
similar complaint in the past. She states that she recently tested positive for COVID approximately week ago and was tested negative in the hospital. On admission blood pressure was 224/62 and 1 dose of IV hydralazine was given on admission.
Troponin were 0.064 and 0.051 were mildly elevated. EKG showed normal sinus rhythm. Head CT showed no intracranial abnormality. PT/OT evaluated the patient and and the BPPV and vestibular neuritis testing was negative, recommend walker.
Neurology was consulted and stated. She was kept on her current dose of Coreg and then Norvasc 2.5 mg was added today on 09/13/2024 her blood pressure is controlled at 133/57 and she feels no dizziness, headache, vomiting, chest pain. We wanted to
get the patient an MRI however she refused against medical advice citing that she was only comfortable in an open MRI, the prescription will need to be provided by her primary care provider for the open MRI. TTE is normal. Head neck CTA normal.
Pulmonary nodule�patient had a pulmonary nodule that was seen on imaging study done at 05/27/2024 at [facility], but does not want to follow-up for this
Hypertension�continue carvedilol and continue the Norvasc
Diabetes- continue acarbose
Hyperlipidemia�patient has allergy to statins, consider alternatives
Polymyalgia rheumatica- continue the oral prednisone 5 mg
Coronary vascular disease continue aspirin/clopidogrel/nitro as needed
Important imaging findings :
Chest CT: 05/27/2024
-Noncalcified right upper lobe pulmonary nodule.
head/ neck CTA:
- IMPRESSION:
Moderate calcified plaque at the right ICA origin extending to the proximal internal carotid artery. Estimated luminal diameter reduction less than 50%.
Short segment (8mm) stenosis involving the mid left cervical ICA, with estimated luminal diameter reduction of 65-70%. This may be related to a combination of noncalcified and calcified plaque, though the possibility of a short segment of dissection
would be difficult to exclude with certainty.
Nonocclusive calcified plaque at the origin of the left vertebral artery.
Moderate to large peripheral linear calcified plaque of the cavernous ICA, bilaterally. Bilateral supraclinoid greater than 50% stenosis, likely on the order of 60-70%, left greater than right. No occlusion. No [place] of Nix region aneurysm.
Short segment high-grade stenosis involving the proximal left anterior cerebral artery A1 segment, as well as the proximal A2 segment. No occlusion.
No hemodynamically significant stenosis or occlusion of the posterior circulation
TTE:
CONCLUSIONS
Normal left ventricular size and function.
Mild concentric left ventricular hypertrophy.
LV ejection fraction is 64% by volumetric assessment.
Indexed LA volume is severely abnormal (> 48 mL/m2).
Mitral annular calcification.
Trace mitral regurgitation.
No aortic regurgitation is seen.
Trace tricuspid regurgitation.
Normal pericardium without effusion.
No significant change compared to 2020 echocardiogram
Procedure findings :
Discharge Plan
-
Patient Disposition: Home (Routine Discharge)
Discharge Diagnosis/Procedures: Dizziness/vertigo (concern for transient ischemic attack), chronic pulmonary nodule, hypertension, polymyalgia rheumatica, Diabetes Mellitus type 2, Hyperlipidemia, Coronary vascular disease
Condition: Fair
Diet: Diabetic, Carb Controlled
Activity: As tolerated
Driving Restrictions: As prior to admission
Bathing Restrictions: None
Activity Restrictions/Additional Instructions:
Please get prescription for open MRI with Primary care provider
CBC in 1 week with primary care provider
Instructions: Controlling your blood pressure through lifestyle, High blood pressure emergencies, DASH diet, Understanding your risk of high blood pressure
Referrals:
Lui Cherry MD [Family Provider] - in less than 1 week
Prescriptions:
New
acarbose 50 mg Tablet
25 mg PO BID AT 0800,1700 Qty: 30 0RF
carvedilol 12.5 mg Tablet
12.5 mg PO BID Qty: 30 0RF
prednisone 5 mg Tablet
5 mg PO DAILY Qty: 30 0RF
amlodipine 2.5 mg Tablet
2.5 mg PO DAILY Qty: 30 0RF
ascorbic acid (vitamin C) [Vitamin C] 500 mg Tablet
500 mg PO DAILY Qty: 30 0RF
nitroglycerin 0.4 mg Tablet, Sublingual
0.4 mg sublingual [id number] PRN (Reason: chest pain ) Qty: 30 0RF
cholecalciferol (vitamin D3) 50 mcg (2,000 unit) Tablet
50 mcg PO DAILY Qty: 30 0RF
aspirin 81 mg Tablet,Chewable
81 mg PO DAILY Qty: 0 0RF
clopidogrel 75 mg Tablet
75 mg PO DAILY Qty: 30 0RF
Discontinued
nitroglycerin 0.4 MG tablet, sublingual
0.4 mg sublingual [id number] PRN (Reason: chest pain ) Qty: 25 0RF
aspirin 81 MG tablet,chewable
81 mg PO DAILY 0RF
clopidogrel 75 MG tablet
75 mg PO DAILY Qty: 30 2RF
prednisone 5 MG tablet
5 mg PO DAILY
acarbose 25 MG tablet
25 mg PO BID
carvedilol 12.5 mg Tablet
12.5 mg PO BID
ascorbic acid (vitamin C) [Vitamin C] 500 mg Tablet
500 mg PO DAILY
cholecalciferol (vitamin D3) [Vitamin D3] 50 mcg (2,000 unit) Tablet
50 mcg PO DAILY
Discharge Orders:
Discharge Patient (As Directed); Ordered 09/14/24
Ordered By: Brice Mireles
Discharge Date and Time
Discharge Date/Time: 09/14/24 13:50
Print Language: UZBEK
[2024-09-13 08:18] LABS: Blood Urea Nitrogen 12 mg/dl (7-17); Calcium 9.2 mg/dl (8.4-10.2); Carbon Dioxide 30 mmol/L (22-30); Chloride 103 mmol/L (98-107); Estimated Creatinine Clearance 56 ml/min; Glucose 141 mg/dl (70-99); Potassium 4.3 mmol/L (3.5-5.1); Sodium 138 mmol/L (135-145); eGFR > 60.00
[2024-09-13] MEDS: NORVASC 2.5 MG PO (08:34)
[2024-09-13] MEDS: COREG 12.5 MG PO ×2 (08:34→20:43)
[2024-09-13] MEDS: DELTASONE 5 MG PO (08:34)
[2024-09-13] MEDS: PRECOSE 25 MG PO ×2 (08:35→17:12)
[2024-09-13] MEDS: PLAVIX 75 MG PO (08:35)
[2024-09-13] MEDS: LOW STRENGTH ASPIRIN 81 MG PO (08:36)
[2024-09-13] MEDS: VITAMIN D3 (cholecalciferol) 50 MCG PO (08:36)
[2024-09-13] MEDS: VITAMIN C 500 MG PO (08:36)
--- NOTE | 2024-09-13 08:38 | W.PN.UPDATE ---
Update Note
Progress Note Update
I saw and evaluated the patient. I reviewed the resident�s note and agree with findings and plan as documented in the resident�s note.
Denies vertigo/dizziness currently
Gen: NAD, AAOx3.
Eyes: EOMI, PERRLA, no scleral icterus.
Neck: supple.
CV: remains RRR, +S1/S2, no m/r/g.
Resp: remains CTAB, no rales, wheezes, or rhonchi.
Abd: remains +BS, soft, NT, ND
Skin: No rashes.
Neuro: CN 2-12 intact, non-focal.
Psych: Normal mood and affect.
CT brain: No acute intracranial abnormality noted.
Dizziness/Vertigo:
-pt refusing MRI brain to assess for posterior CVA as etiology
-case discussed at length with neuro. Repeat CT brain then outpt open MRI.
-possibly due to hypertensive emergency (SBP 224 on admission)
-IV Hydralazine given on admission
-BP has improved
-cont Coreg
-Norvasc 2.5mg daily started
Other problems:
Chronic pulm nodule
Elevated troponin which likely represents acute nonischemic myocardial injury
PMR: cont prednisone
Obesity due to excess calories
DNR/Lovenox
Dispo: Awaiting neurology clearance for discharge.
--- NOTE | 2024-09-13 09:04 | CON.NEURO ---
Consultation
Order
Date of Consultation: 09/13/24
Requesting Provider: Dawn Paige CRNP
Reason for Consult: Dizziness
Neurology Consultation Note.
HPI: This is an 84-year-old woman who presented to [facility] on 09/11/2024 with dizziness. According to the patient she developed an acute continuous nonpositional sensation of spinning with associated ataxia, nausea and emesis on
the day of the presentation. Her symptoms reportedly lasted for several hours with spontaneous resolution. No reports of headache, motor, sensory or visual changes. Ms. Steinberg was recently diagnosed with SARS 2 Cov.
ER VS: 224/62, 65, afebrile.
EKG: NSR, QTc Int : 467 ms
PDMP: none
Labs: Glucose�198, troponin�0.0 19�0.0 64, normal sodium, platelets, WBCs; UA positive for ketones
CT head wo contrast-moderate subcortical, deep, and periventricular white matter low-attenuation; arachnoid cyst overlying the anterior-superior convexity of the left frontal lobe
PMH: L3-L4 and L4-L5 stenosis, Polymyalgia Rheumatica, PAD, CAD, HTN, DLP, DM, statin intolerance
PSH: L CEA, L TKA, BL cataract extraction, R subclavian artery stent;
SH: ; lives alone; independent in AIDLs, former smoker, denied excessive alcohol use
FH: granddaughters-refractory epilepsy, son-son in his 60s, daughter from breast CA, grandson Kat sarcoma
All: Sulfas, �HMG-CoA reductase inhibitors, metformin, oxycodone, tramadol, Tylenol
ROS:Constitutional: Negative. Negative for chills, fever and unexpected weight change.
HENT: Positive for an nasal congestion, negative for earache, tinnitus
Eyes: Negative. Negative for photophobia, pain and visual disturbance.
Respiratory: Negative for cough, choking and shortness of breath.
Cardiovascular: Negative for chest pain, palpitations and leg swelling.
Gastrointestinal: Negative for abdominal pain and vomiting.
Endocrine: Negative. Negative for cold intolerance.
Musculoskeletal: Positive for chronic back pain.
Skin: Negative for rash.
Allergic/Immunologic: Negative. Negative for immunocompromised state.
Neurological: Positive for right foot drop over the last 5 years
Psychiatric/Behavioral: Negative for behavioral problems, confusion and hallucinations.
General: Well developed. In no acute distress.
Cardio: Regular rate and rhythm without murmur. Extremities are without cyanosis or edema.
Neuro:
Mental Status: Alert, oriented to person, place, and date. Normal attention and recall. Good fund of knowledge. Follows complex requests across the midline. Comprehension, naming, and repetition intact. Immediate and delayed recall 3/3.
Cranial Nerves: . Pupils are equally round and reactive to light. EOMs full. Visual mccarthy full to confrontation. No ptosis. No nystagmus. V1-V3 intact to light touch and pinprick bilaterally, symmetric. Face symmetric. Normal hearing AU.
The palate elevated well. SCMs and traps 5/5. Tongue midline. No dysarthria.
Motor: Normal bulk and tone. No pronator or arm drift. Strength 5/5 throughout except for left dorsiflexion 3-/5. No clonus.
Reflexes: Trace throughout.
Sensory: Normal vibration at the toes
Coordination: No dysmetria or tremor.
Gait: L steppage gait
Assessment and Plan:
I. TIA
II. Hypertensive emergency
III. 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
IV. Polymyalgia rheumatica
V. PAD. HMG-CoA reductase inhibitors intolerance
VII. History of L CEA, R subclavian stent
-Continue Telemetry monitoring
--Brain MRI without ibeth with sedation (patient from had multiple failures with oral sedation in the past.
-TTE with bubble studies, if unremarkable-please proceed with ZENON.
-Continue aspirin 81 mg once a day and Plavix 75 mg once a day
-CTA head and neck
-Brain MRI without ibeth with sedation (patient from had multiple failures with oral sedation in the past.
-Please obtain medical records from [facility]
-Please check HbA1C, LDL.
-TTE with agitated saline
-OP NCS/EMG of LEs
-PT.
-DVT prophylaxis.
I personally reviewed all radiology and labs along with past medical records pertinent to current medical problems. Total time spent in patient care is 60 minutes.
Thank you for allowing us to participate in the care of this patient. We will continue to follow. Please do not hesitate to contact us with any questions or concerns.
Subjective/Objective
Subjective Data
Date of Service: September 13, 2024
Objective Data
Vital Signs
Temp Pulse Resp BP Pulse Ox
36.9 C 67 16 133/57 94
09/13/24 03:10 09/13/24 03:10 09/13/24 03:10 09/13/24 03:10 09/13/24 03:10
Lab Results
09/13/24 07:26
09/13/24 07:26
Sodium 138 mmol/L (135-145) 09/13/24 07:26
Potassium 4.3 mmol/L (3.5-5.1) 09/13/24 07:26
BUN 12 mg/dl (7-17) 09/13/24 07:26
Glucose 141 mg/dl (70-99) H 09/13/24 07:26
Calcium 9.2 mg/dl (8.4-10.2) 09/13/24 07:26
Patient Allergies
acetaminophen [From Tylenol] Allergy (Verified 09/11/24 18:43)
'makes me sick to my stomach'
ciprofloxacin [From Cipro] Allergy (Verified 09/11/24 18:43)
Anaphylaxis
latex [Latex] Allergy (Verified 09/11/24 18:43)
Itching
metformin Allergy (Verified 09/11/24 18:43)
muscle aches
oxycodone Allergy (Verified 09/11/24 18:43)
Nausea / Vomiting
Gdbgrpx-KIT-SyN Reductase Inhibitor [Sqlwobw-Kul-Zgr Reductase Inhibitor] Allergy (Verified 09/11/24 18:43)
RABDO
Sulfa (Sulfonamide Antibiotics) Allergy (Verified 09/11/24 18:43)
Unknown
sulfamethoxazole [From Bactrim] Allergy (Verified 09/11/24 18:43)
Rash/N/V
tramadol Allergy (Verified 09/11/24 18:43)
Nausea / Vomiting
trimethoprim [From Bactrim] Allergy (Verified 09/11/24 18:43)
Rash/N/V
Medications
-
Active Medications
Generic Name Dose Route Start Last Admin
Trade Name Freq PRN Reason Stop Dose Admin
Acarbose 25 mg 09/12/24 08:00 09/13/24 08:35
Acarbose 50 Mg Tablet PO 10/10/24 07:59 25 mg
BID AT 0800,1700 VALERI Administration
Amlodipine Besylate 2.5 mg 09/12/24 14:00 09/13/24 08:34
Amlodipine 2.5 Mg Tablet PO 10/10/24 13:59 2.5 mg
DAILY VALERI Administration
Ascorbic Acid 500 mg 09/12/24 08:00 09/13/24 08:36
Ascorbic Acid 500 Mg Tablet PO 10/10/24 07:59 500 mg
DAILY VALERI Administration
Aspirin 81 mg 09/12/24 08:00 09/13/24 08:36
Aspirin 81 Mg Chewable Tablet PO 10/10/24 07:59 81 mg
DAILY VALERI Administration
Carvedilol 12.5 mg 09/12/24 08:00 09/13/24 08:34
Carvedilol 12.5 Mg Tablet PO 10/10/24 07:59 12.5 mg
BID VALERI Administration
Cholecalciferol 50 mcg 09/12/24 08:00 09/13/24 08:36
Cholecalciferol (Vitamin D3) 50 Mcg Tablet (2,000 Units) PO 10/10/24 07:59 50 mcg
DAILY VALERI Administration
Clopidogrel Bisulfate 75 mg 09/12/24 08:00 09/13/24 08:35
Clopidogrel 75 Mg Tablet PO 10/10/24 07:59 75 mg
DAILY VALERI Administration
Enoxaparin Sodium 40 mg 09/12/24 18:00 09/12/24 18:02
Enoxaparin Sodium 40 Mg/0.4 Ml Syringe SC 10/10/24 17:59 40 mg
QPM VALERI Administration
Meclizine HCl 25 mg 09/12/24 00:48
Meclizine 25 Mg Tablet PO 10/10/24 00:47
Q8HPRN PRN
dizziness
Nitroglycerin 0.4 mg 09/12/24 00:48
Nitroglycerin 0.4 Mg Sl Tablet SL 10/10/24 00:47
[id number] PRN
chest pain
Prednisone 5 mg 09/12/24 08:00 09/13/24 08:34
Prednisone 5 Mg Tablet PO 10/10/24 07:59 5 mg
DAILY VALERI Administration
Sodium Chloride 0 flush 09/11/24 23:00
Sodium Chloride 0.9% (Flush) Syringe IV 10/09/24 22:59
PER PROTOCOL VALERI
Home Medications
�Medication �Instructions �Recorded
acarbose 50 mg tablet 25 mg (1/2 x 50 mg) PO BID AT 09/13/24
0800,1700 #30 tabs
amlodipine 2.5 mg tablet 2.5 mg PO DAILY #30 tabs 09/13/24
ascorbic acid (vitamin C) 500 mg 500 mg PO DAILY #30 tabs 09/13/24
tablet (Vitamin C)
aspirin 81 mg chewable tablet 81 mg PO DAILY #30 tabs 09/13/24
carvedilol 12.5 mg tablet 12.5 mg PO BID #30 tabs 09/13/24
cholecalciferol (vitamin D3) 50 50 mcg PO DAILY #30 tabs 09/13/24
mcg (2,000 unit) tablet
clopidogrel 75 mg tablet 75 mg PO DAILY #30 tabs 09/13/24
nitroglycerin 0.4 mg sublingual 0.4 mg sublingual [id number] PRN 09/13/24
tablet chest pain #30 tabs
prednisone 5 mg tablet 5 mg PO DAILY #30 tabs 09/13/24
Vital Signs and Labs
-
Vital Signs and Labs:
Vital Signs
Temp Pulse Resp BP Pulse Ox
36.5 C 70 21 164/67 95
09/13/24 07:00 09/13/24 07:00 09/13/24 07:00 09/13/24 07:00 09/13/24 08:00
Lab Results
09/13/24 07:26
09/13/24 07:26
Sodium 138 mmol/L (135-145) 09/13/24 07:26
Potassium 4.3 mmol/L (3.5-5.1) 09/13/24 07:26
BUN 12 mg/dl (7-17) 09/13/24 07:26
Glucose 141 mg/dl (70-99) H 09/13/24 07:26
Calcium 9.2 mg/dl (8.4-10.2) 09/13/24 07:26
Medications
-
Medications:
Generic Name Dose Route Start Last Admin
Trade Name Freq PRN Reason Stop Dose Admin
Acarbose 25 mg 09/12/24 08:00 09/13/24 08:35
Acarbose 50 Mg Tablet PO 10/10/24 07:59 25 mg
BID AT 0800,1700 VALERI Administration
Amlodipine Besylate 2.5 mg 09/12/24 14:00 09/13/24 08:34
Amlodipine 2.5 Mg Tablet PO 10/10/24 13:59 2.5 mg
DAILY VALERI Administration
Ascorbic Acid 500 mg 09/12/24 08:00 09/13/24 08:36
Ascorbic Acid 500 Mg Tablet PO 10/10/24 07:59 500 mg
DAILY VALERI Administration
Aspirin 81 mg 09/12/24 08:00 09/13/24 08:36
Aspirin 81 Mg Chewable Tablet PO 10/10/24 07:59 81 mg
DAILY VALERI Administration
Carvedilol 12.5 mg 09/12/24 08:00 09/13/24 08:34
Carvedilol 12.5 Mg Tablet PO 10/10/24 07:59 12.5 mg
BID VALERI Administration
Cholecalciferol 50 mcg 09/12/24 08:00 09/13/24 08:36
Cholecalciferol (Vitamin D3) 50 Mcg Tablet (2,000 Units) PO 10/10/24 07:59 50 mcg
DAILY VALERI Administration
Clopidogrel Bisulfate 75 mg 09/12/24 08:00 09/13/24 08:35
Clopidogrel 75 Mg Tablet PO 10/10/24 07:59 75 mg
DAILY VALERI Administration
Enoxaparin Sodium 40 mg 09/12/24 18:00 09/12/24 18:02
Enoxaparin Sodium 40 Mg/0.4 Ml Syringe SC 10/10/24 17:59 40 mg
QPM VALERI Administration
Meclizine HCl 25 mg 09/12/24 00:48
Meclizine 25 Mg Tablet PO 10/10/24 00:47
Q8HPRN PRN
dizziness
Nitroglycerin 0.4 mg 09/12/24 00:48
Nitroglycerin 0.4 Mg Sl Tablet SL 10/10/24 00:47
[id number] PRN
chest pain
Prednisone 5 mg 09/12/24 08:00 09/13/24 08:34
Prednisone 5 Mg Tablet PO 10/10/24 07:59 5 mg
DAILY VALERI Administration
Sodium Chloride 0 flush 09/11/24 23:00
Sodium Chloride 0.9% (Flush) Syringe IV 10/09/24 22:59
PER PROTOCOL VALERI
Home Medications
-
Home Medications
acarbose 50 mg tablet 25 mg (1/2 x 50 mg) PO BID AT 0800,1700 #30 tabs 09/13/24
amlodipine 2.5 mg tablet 2.5 mg PO DAILY #30 tabs 09/13/24
ascorbic acid (vitamin C) 500 mg tablet (Vitamin C) 500 mg PO DAILY #30 tabs 09/13/24
aspirin 81 mg chewable tablet 81 mg PO DAILY #30 tabs 09/13/24
carvedilol 12.5 mg tablet 12.5 mg PO BID #30 tabs 09/13/24
cholecalciferol (vitamin D3) 50 mcg (2,000 unit) tablet 50 mcg PO DAILY #30 tabs 09/13/24
clopidogrel 75 mg tablet 75 mg PO DAILY #30 tabs 09/13/24
nitroglycerin 0.4 mg sublingual tablet 0.4 mg sublingual [id number] PRN chest pain #30 tabs 09/13/24
prednisone 5 mg tablet 5 mg PO DAILY #30 tabs 09/13/24
[2024-09-13 11:00] VITALS: BP 146/64
[2024-09-13 11:38] LABS: Glucose - Point of Care 321 mg/dl (70-99)
--- NOTE | 2024-09-13 11:39 | W.PN.UPDATE ---
Addendum entered and electronically signed by Brice Mireles MD 09/13/24 12:50:
Patient refusing MRI of the brain even with sedation. Case discussed with Dr. Williamson. Will check CTA head/neck and echo. Cont ASA/Plavix for presumed TIA.
Original Note:
Update Note
Progress Note Update
Case discussed at length with neurology as well as Dr. Joya. Pt will have MRI brain under sedation tomorrow.
[2024-09-13 12:53] LABS: HDL Cholesterol 49 mg/dl; LDL Cholesterol, Calculated 126 mg/dl; Total Cholesterol 224 mg/dl (50-199); Triglyceride 249 mg/dl (10-149); Very Low Density Lipoprotein 49 mg/dl (0-30)
[2024-09-13 13:25] LABS: TSH Reflex To Free T4 0.58 uIU/ml (0.47-4.68)
[2024-09-13 14:23] LABS: Glycohemoglobin (HgbA1c) 7.4 % (4.0-5.6)
[2024-09-13 15:00] VITALS: BP 121/80
[2024-09-13 16:33] LABS: Glucose - Point of Care 146 mg/dl (70-99)
[2024-09-13] MEDS: LOVENOX 40 MG SC (17:11)
[2024-09-13 19:25] VITALS: BP 156/66
[2024-09-13 21:19] LABS: Glucose - Point of Care 150 mg/dl (70-99)
[2024-09-13 23:20] VITALS: BP 148/64
[2024-09-14 07:00] VITALS: BP 135/58
[2024-09-14 07:24] LABS: Glucose - Point of Care 150 mg/dl (70-99)
--- NOTE | 2024-09-14 09:13 | W.PN.UPDATE ---
Update Note
Progress Note Update
I saw and evaluated the patient. I reviewed the resident�s note and agree with findings and plan as documented in the resident�s note.
No new complaints.
Gen: NAD, AAOx3.
Eyes: EOMI, PERRLA, no scleral icterus.
Neck: supple.
CV: continues to remain RRR, +S1/S2, no m/r/g.
Resp: continues to remain CTAB, no rales, wheezes, or rhonchi.
Abd: continues to remain +BS, soft, NT, ND
Skin: No rashes.
Neuro: CN 2-12 intact, non-focal.
Psych: Normal mood and affect.
CT brain: No acute intracranial abnormality noted.
CTA head/neck: Moderate calcified plaque at the right ICA origin extending to the proximal internal carotid artery. Estimated luminal diameter reduction less than 50%. Short segment (8mm) stenosis involving the mid left cervical ICA, with estimated
luminal diameter reduction of 65-70%. This may be related to a combination of noncalcified and calcified plaque, though the possibility of a short segment of dissection would be difficult to exclude with certainty. Nonocclusive calcified plaque at
the origin of the left vertebral artery. Moderate to large peripheral linear calcified plaque of the cavernous ICA, bilaterally. Bilateral supraclinoid greater than 50% stenosis, likely on the order of 60-70%, left greater than right. No occlusion.
No [place] aneurysm. Short segment high-grade stenosis involving the proximal left anterior cerebral artery A1 segment, as well as the proximal A2 segment. No occlusion. No hemodynamically significant stenosis or occlusion of the
posterior circulation.
Echo: EF 64%. Indexed LA volume is severely abnormal (> 48 mL/m2). Mild MR, trace TR. No significant change compared to 2020 echocardiogram
Dizziness/Vertigo:
-pt refusing MRI brain (even with sedation) to assess for posterior CVA as etiology
-possibly due to hypertensive emergency (SBP 224 on admission)
-IV Hydralazine given on admission
-BP has improved
-cont Coreg/Norvasc
-imaging above
-cont ASA/Plavix
-allergy to statins
-case discussed at length with neurology during this admission. Will treat as TIA.
-as per [place] message with Dr. Williamson at 0919 on 09/14/24 Dr. Williamson has cleared the pt for discharge.
Other problems:
Chronic pulm nodule
Elevated troponin which likely represents acute nonischemic myocardial injury
PMR: cont prednisone
Obesity due to excess calories
DNR/Lovenox
Medically cleared for discharge.
Total time spent on d/c = 31 min. This included today's physical exam, progress note, review of laboratory and diagnostic data, preparation of discharge documents and prescriptions, and discussions about the pt's hospital course and discharge plan
with the patient and other [employer] involved in the patient's care.
[2024-09-14] MEDS: VITAMIN D3 (cholecalciferol) 50 MCG PO (09:27)
[2024-09-14] MEDS: PLAVIX 75 MG PO (09:28)
[2024-09-14] MEDS: PRECOSE 25 MG PO (09:28)
[2024-09-14] MEDS: NORVASC 2.5 MG PO (09:28)
[2024-09-14] MEDS: LOW STRENGTH ASPIRIN 81 MG PO (09:28)
[2024-09-14] MEDS: VITAMIN C 500 MG PO (09:29)
[2024-09-14] MEDS: COREG 12.5 MG PO (09:29)
[2024-09-14] MEDS: DELTASONE 5 MG PO (09:29)
--- NOTE | 2024-09-14 09:43 | W.PN.HOSP.TC ---
Today's Communication/Plan
-
- discharge today
Assessment / Plan
Assessment / Plan
TIA:
- Continue aspirin/plavix
- TTE negative
-Patient refused to have MRI, wants a prescription for an open MRI
- PT/OT ordered and they said BPPV and Vestibular neuritis testing negative and need to assess ambulation with a walker
- head CT normal
- Ekg normal
- Orthostatic vitals
- Meclizine PRN
-Continue carvedilol and Norvasc l and better control of blood pressure
Pulmonary nodule:
-Patient does not want to follow-up for pulmonary nodule that was seen on an imaging study done on 05/27/2024 at [facility].
hypertension
-Today is 133/57
- Patient was added on 2.5 Mg Norvasc yesterday and already on her home dose of Coreg, continue
diabetes:
- Has been on acarbose for 5 years
-Continue acarbose
hyperlipidemia:
-Patient has an allergy to statins because it caused rhabdomyolysis
-Consider alternatives
Polymyalgia Rheumatica
- Oral prednisone 5 mg, continue
CVD:
- continue aspirin and clopidogrel
- continue nitro as needed
DVT prophylaxis: Lovenox
DNR
Anticipated Discharge: Today
Subjective/Interval History
-
Date of Service: September 14, 2024
No overnight events
No acute medical events.
Objective Data
-
Labs:
Laboratory Results
09/14/24
07:29
WBC Pending
Hgb Pending
Hct Pending
Plt Count Pending
Vital Signs:
Vital Signs
Temp Pulse Resp BP Pulse Ox
97.9 F 68 16 148/64 95
09/13/24 23:20 09/13/24 23:20 09/13/24 23:20 09/13/24 23:20 09/13/24 23:20
I&O
09/13/24 09/14/24 09/15/24
06:59 06:59 06:59
Intake Total 960 / 960 720 / 720
Balance 960 / 960 720 / 720
Review of Systems
-
History Source: Patient
Constitutional: Denies Fever, Chills or Weakness
Respiratory: Denies Cough or Trouble Breathing
Cardiac: Denies Chest Pain or Palpitations
Abdomen/GI: Denies Abdominal Pain, Vomiting, Diarrhea, Constipated or Hematemesis
Genitourinary: Denies Dysuria
Musculoskeletal: Denies Joint Pain
Physical Exam
-
General: Obese
Respiratory: Clear to Auscultation
Cardiac: Regular Rhythm
GI: Soft, Nontender, Nondistended and Normal Bowel Sounds
Musculoskeletal: No Clubbing, No Cyanosis, Edema, Left Upper Extrem and Edema, Right Lower Extrem
Neuro: Awake, Alert, Oriented and AO x 3
Data Reviewed
-
Medical Tests (Nuc Med, Echo etc): Image personally visualized and interpreted and Discussed with Physician
Labs: Labs Reviewed by me and Discussed with Physician
[2024-09-14 10:42] LABS: Mean Corp Hgb Conc. 33.3 g/dL (33.0-37.0); Mean Corpuscular Hgb 31.7 pg (27.0-31.0); Mean Corpuscular Volume 95.2 fL (81.0-99.0); Mean Platelet Volume 11.4 fL (7.4-10.4); Platelet Count 173 10^3/uL (130-400); Red Blood Cell Count 3.78 10^6/uL (4.20-5.40); Red Cell Dist. Width 14.5 % (11.5-14.5); White Blood Cell Count 4.9 10^3/uL (4.8-10.8)
--- NOTE | 2024-09-14 10:44 | CM ---
Chart reviewed and patient to return to home at discharge, per physical therapy notes recommendation is for skilled placement patient has declined visiting nurses.
Plan; Home no needs.
[2024-09-14 11:00] VITALS: BP 122/52
[2024-09-14 11:49] LABS: Glucose - Point of Care 174 mg/dl (70-99)
--- NOTE | 2024-09-14 13:03 | W.PN.NEURO.1 ---
Today's Communication / Plan
-
.
Subjective/Objective
Subjective Data
Date of Service: September 14, 2024
Neurology follow-up note.
Ms. Roger reports no recurrent episodes of dizziness. She has been normotensive and afebrile.
Ms. Steinberg has declined sedation prior to MRI.
Transthoracic echo�Interatrial septum is intact with no evidence of shunting by color flow Doppler. No intracardiac mass or thrombus formation seen.
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
LDL-pending, HbA1C 7.4.
PMH: L3-L4 and L4-L5 stenosis, Polymyalgia Rheumatica, PAD, CAD, HTN, DLP, DM, statin intolerance
PSH: L CEA, L TKA, BL cataract extraction, R subclavian artery stent;
SH: ; lives alone; independent in AIDLs, former smoker, denied excessive alcohol use
FH: granddaughters-refractory epilepsy, son-son in his 60s, daughter from breast CA, grandson Kat sarcoma
All: Sulfas, �HMG-CoA reductase inhibitors, metformin, oxycodone, tramadol, Tylenol
ROS:Constitutional: Negative. Negative for chills, fever and unexpected weight change.
HENT: Positive for an nasal congestion, negative for earache, tinnitus
Eyes: Negative. Negative for photophobia, pain and visual disturbance.
Respiratory: Negative for cough, choking and shortness of breath.
Cardiovascular: Negative for chest pain, palpitations and leg swelling.
Gastrointestinal: Negative for abdominal pain and vomiting.
Endocrine: Negative. Negative for cold intolerance.
Musculoskeletal: Positive for chronic back pain.
Skin: Negative for rash.
Allergic/Immunologic: Negative. Negative for immunocompromised state.
Neurological: Positive for right foot drop over the last 5 years
Psychiatric/Behavioral: Negative for behavioral problems, confusion and hallucinations.
General: Well developed. In no acute distress.
Cardio: Regular rate and rhythm without murmur. Extremities are without cyanosis or edema.
Neuro:
Mental Status: Alert, oriented to person, place, and date. Normal attention and recall. Good fund of knowledge. Follows complex requests across the midline. Comprehension, naming, and repetition intact. Immediate and delayed recall 3/3.
Cranial Nerves: . Pupils are equally round and reactive to light. EOMs full. Visual mccarthy full to confrontation. No ptosis. No nystagmus. V1-V3 intact to light touch and pinprick bilaterally, symmetric. Face symmetric. Normal hearing AU.
The palate elevated well. SCMs and traps 5/5. Tongue midline. No dysarthria.
Motor: Normal bulk and tone. No pronator or arm drift. Strength 5/5 throughout except for left dorsiflexion 3-/5. No clonus.
Reflexes: Trace throughout.
Sensory: Normal vibration at the toes
Coordination: No dysmetria or tremor.
Gait: L steppage gait
Assessment and Plan:
I. TIA
II. Hypertensive emergency
III. 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
IV. Polymyalgia rheumatica
V. PAD. HMG-CoA reductase inhibitors intolerance
VII. Bilateral severe cavernous ICA stenosis, left cervical ICA 65-70% stenosis, asymptomatic
-Continue Telemetry monitoring
-Continue aspirin 81 mg once a day and Plavix 75 mg once a day
-OP open brain MRI wo ibeth
-OP NCS/EMG of LEs
-LDL goal<70, HbA1C<7.
-DVT prophylaxis.
-Outpatient vascular surgery follow-up
-OP Neurology follow up in 1 week.
I personally reviewed all radiology and labs along with past medical records pertinent to current medical problems. Total time spent in patient care is 35 minutes.
Thank you for allowing us to participate in the care of this patient. We will continue to follow. Please do not hesitate to contact us with any questions or concerns.
Objective Data
Vital Signs
Temp Pulse Resp BP Pulse Ox
36.9 C 69 20 122/52 95
09/14/24 11:00 09/14/24 11:00 09/14/24 11:00 09/14/24 11:00 09/14/24 11:00
Lab Results
09/14/24 09:56
09/13/24 07:26
Sodium 138 mmol/L (135-145) 09/13/24 07:26
Potassium 4.3 mmol/L (3.5-5.1) 09/13/24 07:26
BUN 12 mg/dl (7-17) 09/13/24 07:26
Glucose 141 mg/dl (70-99) H 09/13/24 07:26
Calcium 9.2 mg/dl (8.4-10.2) 09/13/24 07:26
LDL Cholesterol, Calc 126 mg/dl 09/13/24 11:54
Patient Allergies
acetaminophen [From Tylenol] Allergy (Verified 09/11/24 18:43)
'makes me sick to my stomach'
ciprofloxacin [From Cipro] Allergy (Verified 09/11/24 18:43)
Anaphylaxis
latex [Latex] Allergy (Verified 09/11/24 18:43)
Itching
metformin Allergy (Verified 09/11/24 18:43)
muscle aches
oxycodone Allergy (Verified 09/11/24 18:43)
Nausea / Vomiting
[id number] Reductase Inhibitor [Rcsysxl-Bne-Wad Reductase Inhibitor] Allergy (Verified 09/11/24 18:43)
RABDO
Sulfa (Sulfonamide Antibiotics) Allergy (Verified 09/11/24 18:43)
Unknown
sulfamethoxazole [From Bactrim] Allergy (Verified 09/11/24 18:43)
Rash/N/V
tramadol Allergy (Verified 09/11/24 18:43)
Nausea / Vomiting
trimethoprim [From Bactrim] Allergy (Verified 12/10/24 18:43)
Rash/N/V
== END 2024-09-14 13:50 | disposition home or self-care (01) ==
LOC: 4 WEST ACU 23:57
PROVIDERS: Clinical Nurse Specialist Family Health; Nurse Practitioner Family; Student in an Organized Health Care Education/Training Program; ADMITTING PHYSICIAN Internal Medicine; ATTENDING PHYSICIAN Internal Medicine; CONSULT PHYSICIAN Psychiatry & Neurology Neurology; EMERGENCY PHYSICIAN Emergency Medicine; FAMILY PHYSICIAN Family Medicine
DX: I16.1 Hypertensive emergency (principal); G45.9 Transient cerebral ischemic attack, unspecified; R42 Dizziness and giddiness; R11.2 Nausea with vomiting, unspecified; I10 Essential (primary) hypertension; I25.10 Atherosclerotic heart disease of native coronary artery without angina pectoris; E78.00 Pure hypercholesterolemia, unspecified; K21.9 Gastro-esophageal reflux disease without esophagitis; E11.36 Type 2 diabetes mellitus with diabetic cataract; I5A Non-ischemic myocardial injury (non-traumatic); I25.2 Old myocardial infarction; R91.1 Solitary pulmonary nodule; I34.81 Nonrheumatic mitral (valve) annulus calcification; M48.061 Spinal stenosis, lumbar region without neurogenic claudication; E66.09 Other obesity due to excess calories; M21.372 Foot drop, left foot; M35.3 Polymyalgia rheumatica; H55.09 Other forms of nystagmus; F41.9 Anxiety disorder, unspecified; Z87.891 Personal history of nicotine dependence; Z82.49 Family history of ischemic heart disease and other diseases of the circulatory system; Z95.5 Presence of coronary angioplasty implant and graft; Z66 Do not resuscitate; Z79.52 Long term (current) use of systemic steroids; Z96.652 Presence of left artificial knee joint; Z87.440 Personal history of urinary (tract) infections; Z86.16 Personal history of COVID-19; Z88.8 Allergy status to other drugs, medicaments and biological substances; Z88.6 Allergy status to analgesic agent; Z88.1 Allergy status to other antibiotic agents; Z88.2 Allergy status to sulfonamides; Z88.5 Allergy status to narcotic agent; Z91.040 Latex allergy status; Z79.02 Long term (current) use of antithrombotics/antiplatelets; Z79.82 Long term (current) use of aspirin; Z60.2 Problems related to living alone; Z11.52 Encounter for screening for COVID-19; Z68.33 Body mass index [BMI] 33.0-33.9, adult
CPT/HCPCS: 70450; 70496; 70498; 80048; 80053; 80061; 81003; 81015; 82962; 83036; 84443; 84484; 85025; 85027; 87811; 93005; 93306; 97530; Q9967

== ENCOUNTER 2024-09-30 12:47 | Emergency (ER) | payer MEDICARE, SELFPAY ==
[2024-09-30 13:06] VITALS: BP 132/65
[2024-09-30 13:27] LABS: % Basophils 0.8 % (0-2); % Eosinophils 1.3 % (0-6); % Immature Granulocytes 0.5 % (0-0.5); % Lymphocytes 4.3 % (20.5-51.1); % Monocytes 13.2 % (1.7-9.3); % Neutrophils 79.9 % (42.2-75.2); Absolute Eosinophils 0.1 10^3/uL (0-0.7); Absolute Lymphocytes 0.2 10^3/uL (1.2-3.4); Absolute Monocytes 0.5 10^3/uL (0.1-0.6); Absolute Neutrophils 3.1 10^3/uL (1.4-6.5); Hematocrit 34.8 % (37.0-47.0); Hemoglobin 11.8 g/dL (12.0-16.0); Mean Corp Hgb Conc. 33.9 g/dL (33.0-37.0); Mean Corpuscular Hgb 31.9 pg (27.0-31.0); Mean Corpuscular Volume 94.1 fL (81.0-99.0); Mean Platelet Volume 11.6 fL (7.4-10.4); Nucleated Red Blood Cells % 0 %; Platelet Count 121 10^3/uL (130-400); Red Cell Dist. Width 14.4 % (11.5-14.5); White Blood Cell Count 3.9 10^3/uL (4.8-10.8)
[2024-09-30 13:36] LABS: COVID-19 Antigen Negative (Negative)
[2024-09-30 13:43] LABS: ALT (SGPT) 21 U/L (0-35); AST (SGOT) 25 U/L (14-36); Albumin 4.2 g/dl (3.5-5.0); Alkaline Phosphatase 65 U/L (38-126); Blood Urea Nitrogen 10 mg/dl (7-17); Calcium 9.2 mg/dl (8.4-10.2); Carbon Dioxide 28 mmol/L (22-30); Chloride 98 mmol/L (98-107); Glucose 190 mg/dl (70-99); Potassium 4.2 mmol/L (3.5-5.1); Sodium 134 mmol/L (135-145); Total Bilirubin 0.7 mg/dl (0.2-1.3); Total Protein 6.3 g/dl (6.3-8.2); eGFR > 60.00
[2024-09-30 13:53] LABS: Troponin I < 0.012 ng/ml
[2024-09-30 16:01] VITALS: BMI 33.0
[2024-09-30] MEDS: TAMIFLU 75 MG PO (17:00)
[2024-09-30] MEDS: MOTRIN 600 MG PO (17:00)
--- NOTE | 2024-09-30 17:40 | ED.GENMED ---
History of Present Illness
General
Chief Complaint: Chest Pain
Source: patient
Exam Limitations: none
Time Seen by Provider: 09/30/24 16:31
History of Present Illness
History of Present Illness:
84-year-old female who presents with bodyaches, headache, nausea and feel little short of breath. She states she just feels sort of sick. Started yesterday. No hemoptysis. No vomiting. No diarrhea. Was recently at the hospital
Past History
Past History
ED Past Medical History: CAD, GERD, HTN, Hypercholesterolemia, NIDDM, [place], Psychiatric (Anxiety, ) and Other (UTi, )
ED Past Surgical History: Cardiac (Stents x 2), Orthopedic ( bilateral subclavian artery stenosis 75% with the right subclavian with surgical mesh placed, Left knee replacement) and Other (L Carotid surg, cataracts, )
Social History
Tobacco: Former smoker
Alcohol: Daily (beer X 2)
Drug: None
Personal:
Living: alone
Employment: Retired
Family History
Family History: Hypertension
Phy Exam
Physical Exam
Physical Exam:
CONSTITUTIONAL Patient alert and oriented to person, place and time. Well-appearing. Vital signs reviewed.
HEAD atraumatic, normocephalic.
EYES eyelids normal to inspection, Extraocular muscles intact, Conjunctiva normal, Sclera normal.
NECK normal range of motion, Trachea midline, no jugular venous distention.
RESPIRATORY CHEST No respiratory distress noted, Chest expansion equal, Bilateral breath sounds clear.
CARDIOVASCULAR regular rate and rhythm, Heart sounds normal.
ABDOMEN abdomen nontender, Bowel sounds normal. No distention.
BACK normal inspection, no obvious deformities
UPPER EXTREMITY range of motion normal, Motor strength normal, no cyanosis, no edema.
LOWER EXTREMITY range of motion normal, Motor strength normal, no cyanosis, no edema.
NEURO Speech normal, No focal motor deficits, [place] coma scale 15, Memory normal, Cranial Nerves intact to screening exam.
SKIN skin warm, dry, and normal in color.
Scores
Heart Score for Chest Pain Patients
STEMI patient?: Not applicable
Course
Orders/Labs/Results
Orders:
Orders
09/30/24 12:49
Electrocardiogram (*1) Urgent
Reason for Study: Other
Other Reason for Exam: Respiratory Distress
EKG- Treatment ONCE
CR Chest - 2 Views Urgent
Comment:
Reason For Exam: respiratory distress
09/30/24 13:15
COVID-19 Antigen Urgent
Source: Nasal Swab
Complete Blood Count/With Diff Urgent
Comprehensive Metabolic Panel Urgent
Troponin I Urgent
Influenza A+B Rapid Molecular Urgent
RADHA Source: Nasal Swab
Specimen Description:
09/30/24 16:46
Ibuprofen [Motrin] 600 mg PO NOW STA
Oseltamivir Phosphate [Tamiflu] 75 mg PO NOW STA
Abnormal Lab Results
09/30/24
13:15
WBC 3.9 L 10^3/uL
(4.8-10.8)
RBC 3.70 L 10^6/uL
(4.20-5.40)
Hgb 11.8 L g/dL
(12.0-16.0)
Hct 34.8 L %
(37.0-47.0)
MCH 31.9 H pg
(27.0-31.0)
Plt Count 121 L 10^3/uL
(130-400)
MPV 11.6 H fL
(7.4-10.4)
Absolute Lymphs (auto) 0.2 L 10^3/uL
(1.2-3.4)
Neutrophils % 79.9 H %
(42.2-75.2)
Lymphocytes % 4.3 L %
(20.5-51.1)
Monocytes % 13.2 H %
(1.7-9.3)
Sodium 134 L mmol/L
(135-145)
Glucose 190 H mg/dl
(70-99)
09/30/24 13:15
09/30/24 13:15
Vital Signs
Temp: 100.3 F
Initial and Last Documented VS:
Initial Vital Signs
Temp Pulse Resp BP Pulse Ox
98.2 F 84 16 132/65 95
09/30/24 13:06 09/30/24 13:06 09/30/24 13:06 09/30/24 13:06 09/30/24 13:06
Last Documented Vital Signs
Temp Pulse Resp BP Pulse Ox
100.3 F 73 20 146/61 90
09/30/24 17:43 09/30/24 17:55 09/30/24 17:55 09/30/24 17:55 09/30/24 17:55
MDM/Problems Addressed
Differential Diagnosis Includes:
Acute coronary syndrome, CHF, pneumonia, viral syndrome, electrolyte imbalance
MDM/Problems Addressed:
Influenza
*Radiology
Radiology exam reviewed: radiology read reviewed and all reviewed NAD by ED Provider
*Pulse Oximetry
Patient hypoxic: no
*EKG
Interpreted by ED Provider?: Yes
Interpretation: normal
Rate: normal
Rhythm: sinus
Stow: normal axis
Interval: normal interval
QRS Pattern: normal QRS
Ischemia: no ischemia
*Management Professor Interpretation
Rate: normal
Interpretation: normal
Rhythm: sinus
*Critical Care Note
Total Time (30-74mins, 75-104mins- exclusive of procedures): Not Applicable
Data Reviewed
Review of Other/Old Records Reveals: Discharge Summary (Discharge summary from September 2024 reviewed)
Source: patient
Prescriptions/Medications Considered But Not Given:
Considered antibiotics but no pneumonia and influenza positive
Patient Management
Escalation/DeEscalation of care consider admission/obs:
Patient appears well. Influenza positive. Okay for discharge and outpatient follow-up. Treat with Tamiflu.
ED Attending Note
-
Portions of this chart may have been created with voice recognition software.� Occasional wrong word or��sound alike� substitutions may have occurred due to the inherent limitations of voice recognition software.
Discharge Plan
Departure
Patient Disposition: Home (Routine Discharge)
Date of Disposition: 09/30/24
Time of Disposition: 17:42
Patient with high blood pressure during this ER visit?: No
Discharge Problem:
Influenza
Instructions: Flu
Prescriptions:
New
oseltamivir [Tamiflu] 75 mg capsule
75 mg PO BID Qty: 10 0RF
No Action
acarbose 50 mg Tablet
25 mg PO BID AT 0800,1700 Qty: 30 0RF
carvedilol 12.5 mg Tablet
12.5 mg PO BID Qty: 30 0RF
prednisone 5 mg Tablet
5 mg PO DAILY Qty: 30 0RF
amlodipine 2.5 mg Tablet
2.5 mg PO DAILY Qty: 30 0RF
ascorbic acid (vitamin C) [Vitamin C] 500 mg Tablet
500 mg PO DAILY Qty: 30 0RF
nitroglycerin 0.4 mg Tablet, Sublingual
0.4 mg sublingual [id number] PRN (Reason: chest pain ) Qty: 30 0RF
cholecalciferol (vitamin D3) 50 mcg (2,000 unit) Tablet
50 mcg PO DAILY Qty: 30 0RF
aspirin 81 mg Tablet,Chewable
81 mg PO DAILY Qty: 0 0RF
clopidogrel 75 mg Tablet
75 mg PO DAILY Qty: 30 0RF
Referrals:
Lui Cherry MD [Family Provider] -
Activity Restrictions/Additional Instructions:
Please drink plenty of fluids and rest. Please see your doctor in the next 5 days if symptoms persist. Return immediately for shortness of breath, worsening symptoms or any other concerns.
Interventions
Interventions:
*Risk Screen - Suicide Last Done: 09/30/24 13:06
*General Assessment Last Done: 09/30/24 16:01
*Neglect/Abuse Screening Last Done: 09/30/24 13:06
ED- Fall Risk Assessment Last Done: 09/30/24 16:01
*ED COVID-19 Vaccine History Last Done: 09/30/24 16:01
ED- Cardiac Assessment Last Done: 09/30/24 16:01
Discharge Date and Time
Print Language: CHINESE
[2024-09-30 17:55] VITALS: BP 146/61
== END 2024-09-30 18:03 | disposition home or self-care (01) ==
LOC: EMR 12:47
PROVIDERS: EMERGENCY PHYSICIAN Emergency Medicine; FAMILY PHYSICIAN Family Medicine
DX: J10.1 Influenza due to other identified influenza virus with other respiratory manifestations (principal); I25.10 Atherosclerotic heart disease of native coronary artery without angina pectoris; K21.9 Gastro-esophageal reflux disease without esophagitis; I10 Essential (primary) hypertension; E78.00 Pure hypercholesterolemia, unspecified; E11.9 Type 2 diabetes mellitus without complications; I25.2 Old myocardial infarction; F41.9 Anxiety disorder, unspecified; Z82.49 Family history of ischemic heart disease and other diseases of the circulatory system; Z87.440 Personal history of urinary (tract) infections; Z87.891 Personal history of nicotine dependence; Z95.5 Presence of coronary angioplasty implant and graft; Z96.652 Presence of left artificial knee joint
CPT/HCPCS: 99283; 71046; 80053; 84484; 85025; 87502; 87811; 93005

== ENCOUNTER 2025-04-12 07:35 | Emergency (ER) | payer MEDICARE, SELFPAY ==
[2025-04-12 07:37] VITALS: BP 149/101
--- NOTE | 2025-04-12 08:32 | ED.GENMED ---
History of Present Illness
General
Chief Complaint: Oral/Mouth Problem
Source: patient
Exam Limitations: none
Time Seen by Provider: 04/12/25 08:08
Nursing documentation reviewed up to this point in time: agreed with
History of Present Illness
History of Present Illness:
85-year-old female with a past medical history as noted who presents to the ER for evaluation of gum bleeding. Patient reports that she woke up this morning with blood on her pillow and when she went to the bathroom she noticed that she was having
bleeding from her gums and spent some clot and blood in the sink. Fortunately bleeding has stopped but she is on Plavix and so she came to the ER for evaluation. She denies any trauma that she can recall. She denies any other unusual bleeding
including GI bleeding, nosebleeds or easy bruising. She has no other acute complaints.
Past History
Past History
ED Past Medical History: CAD, GERD, HTN, Hypercholesterolemia, NIDDM, [place], Psychiatric (Anxiety, ) and Other (UTi, )
ED Past Surgical History: Cardiac (Stents x 2), Orthopedic ( bilateral subclavian artery stenosis 75% with the right subclavian with surgical mesh placed, Left knee replacement) and Other (L Carotid surg, cataracts, )
Social History
Tobacco: Former smoker
Alcohol: Daily (beer X 2)
Drug: None
Personal:
Living: alone
Employment: Retired
Family History
Family History: Hypertension
Review of Systems
Review of Systems
All Other Systems: ROS reviewed and negative except as documented in HPI and ROS
Constitutional: Denies fatigue
EENT: Reports other (Gum bleeding)
Respiratory: Denies cough or trouble breathing
Cardiac: Denies chest pain
Neurological: Denies dizzy
Hematologic/Lymphatic: Denies bruising
Phy Exam
Physical Exam
Physical Exam:
General: Well appearing and non-toxic
HEENT: protecting airway; on examination of the patient's mouth she has generally rather poor dentition; on the right upper molar she has an area of clot at the base that I suspect is likely source of bleeding�area cleaned and is hemostatic at this
point; no signs of trauma to the tongue, no blood noted in the posterior oropharynx or in the nose
Neck: appears supple
CV: No evidence of cyanosis
Resp: No accessory muscle use
Abd: Non-distended
Extremities: No deformities
Neuro: Alert
Psych: Normal affect
Skin: Intact, no bruising noted
Scores
Heart Failure Risk
Heart Failure Risk Score: Not Applicable
Heart Score for Chest Pain Patients
STEMI patient?: Not applicable
Withdrawal Assessment of Alcohol
Withdrawal Assessment Completed?: Not applicable
Course
Orders/Labs/Results
Orders:
Orders
04/12/25 08:45
Complete Blood Count/No Diff Urgent
Abnormal Lab Results
04/12/25
08:45
RBC 3.98 L 10^6/uL
(4.20-5.40)
MCH 32.2 H pg
(27.0-31.0)
MPV 11.7 H fL
(7.4-10.4)
04/12/25 08:45
Vital Signs
Initial and Last Documented VS:
Initial Vital Signs
Temp Pulse Resp BP Pulse Ox
36.9 C 72 16 149/101 98
04/12/25 07:37 04/12/25 07:37 04/12/25 07:37 04/12/25 07:37 04/12/25 07:37
Last Documented Vital Signs
Temp Pulse Resp BP Pulse Ox
36.9 C 72 16 149/101 98
04/12/25 07:37 04/12/25 07:37 04/12/25 07:37 04/12/25 07:37 04/12/25 08:38
MDM/Problems Addressed
Differential Diagnosis Includes:
Gum bleeding
MDM/Problems Addressed:
85-year-old female who is on Plavix presents after she woke up with gum bleeding. She is hemostatic now�source appears to be right upper molar. Will check labs to rule out thrombocytopenia or significant anemia. Monitor for rebleeding.
CBC shows no anemia or thrombocytopenia. Patient remains hemostatic with no rebleeding on emergency room observation. I did cauterize the area that was likely source for bleeding using silver nitrate in an effort to prevent rebleeding. Stable for
discharge�advised to follow-up with dentist. We spoke about soft diet and taking care with brushing of the teeth to prevent rebleeding. Spoke about return precautions and all questions answered.
Chronic conditions affecting care:
Vascular disease on Plavix
*Pulse Oximetry
SaO2: 98
Oxygen Mode of Delivery: Room air
Patient hypoxic: no (98%)
*Critical Care Note
Total Time (30-74mins, 75-104mins- exclusive of procedures): Not Applicable
Data Reviewed
Review of Other/Old Records Reveals: Labs
Source: patient and records
ED Attending Note
-
Portions of this chart may have been created with voice recognition software.� Occasional wrong word or��sound alike� substitutions may have occurred due to the inherent limitations of voice recognition software.
Discharge Plan
Departure
Patient Disposition: Home (Routine Discharge)
Date of Disposition: 04/12/25
Time of Disposition: 09:19
Patient with high blood pressure during this ER visit?: Yes
Discharge Problem:
Bleeding gums
Instructions: Bleeding Gums (DC)
Prescriptions:
No Action
acarbose 50 mg Tablet
25 mg PO BID AT 0800,1700 Qty: 30 0RF
carvedilol 12.5 mg Tablet
12.5 mg PO BID Qty: 30 0RF
prednisone 5 mg Tablet
5 mg PO DAILY Qty: 30 0RF
amlodipine 2.5 mg Tablet
2.5 mg PO DAILY Qty: 30 0RF
ascorbic acid (vitamin C) [Vitamin C] 500 mg Tablet
500 mg PO DAILY Qty: 30 0RF
nitroglycerin 0.4 mg Tablet, Sublingual
0.4 mg sublingual [id number] PRN (Reason: chest pain ) Qty: 30 0RF
cholecalciferol (vitamin D3) 50 mcg (2,000 unit) Tablet
50 mcg PO DAILY Qty: 30 0RF
aspirin 81 mg Tablet,Chewable
81 mg PO DAILY Qty: 0 0RF
clopidogrel 75 mg Tablet
75 mg PO DAILY Qty: 30 0RF
oseltamivir [Tamiflu] 75 mg capsule
75 mg PO BID Qty: 10 0RF
Activity Restrictions/Additional Instructions:
You should take great care when brushing your teeth particularly on the right upper molar to prevent rebleeding. Try to maintain a soft diet for the next few days to prevent rebleeding. You should follow-up with your dentist as we discussed.
Thank you for visiting the Emergency Department at [facility].
1. Please schedule a follow up appointment as directed. Call first thing tomorrow morning to make an appointment.
2. If indicated, please take your medications as instructed and indicated on discharge paperwork.
3. If any of your symptoms do not improve, or persist, or become more severe within 6-12 hours, please return to the emergency department for further care.
4. Please return to the emergency department if you develop a headache, neck pain/stiffness, fever greater than 100.4F, chest pain, shortness of breath, persistent nausea, vomiting, slurred speech, difficulty walking, numbness/tingling, weakness,
signs of infection or any other symptoms that are worrisome to you.
Please call [phone] if you have any questions.
Interventions
Interventions:
*Risk Screen - Suicide Last Done: 04/12/25 07:37
*Neglect/Abuse Screening Last Done: 04/12/25 07:37
Discharge Date and Time
Print Language: TAJIK
[2025-04-12 09:16] LABS: Hematocrit 37.7 % (37.0-47.0); Hemoglobin 12.8 g/dL (12.0-16.0); Mean Corp Hgb Conc. 34.0 g/dL (33.0-37.0); Mean Corpuscular Volume 94.7 fL (81.0-99.0); Platelet Count 146 10^3/uL (130-400); Red Cell Dist. Width 12.9 % (11.5-14.5)
== END 2025-04-12 10:10 | disposition home or self-care (01) ==
LOC: EMR 07:35
PROVIDERS: EMERGENCY PHYSICIAN Emergency Medicine; FAMILY PHYSICIAN Family Medicine
DX: K06.8 Other specified disorders of gingiva and edentulous alveolar ridge (principal); I10 Essential (primary) hypertension; E78.00 Pure hypercholesterolemia, unspecified; E11.9 Type 2 diabetes mellitus without complications; I25.10 Atherosclerotic heart disease of native coronary artery without angina pectoris; F41.9 Anxiety disorder, unspecified; K21.9 Gastro-esophageal reflux disease without esophagitis; I25.2 Old myocardial infarction; Z95.5 Presence of coronary angioplasty implant and graft; Z96.652 Presence of left artificial knee joint; Z87.440 Personal history of urinary (tract) infections; Z87.891 Personal history of nicotine dependence; Z79.02 Long term (current) use of antithrombotics/antiplatelets; Z79.82 Long term (current) use of aspirin; Z88.5 Allergy status to narcotic agent; Z88.2 Allergy status to sulfonamides; Z88.8 Allergy status to other drugs, medicaments and biological substances; Z88.6 Allergy status to analgesic agent; Z88.1 Allergy status to other antibiotic agents; Z91.040 Latex allergy status
CPT/HCPCS: 99283; 85027

== ENCOUNTER 2025-05-14 11:16 | Emergency (ER) | payer MEDICARE, SELFPAY ==
[2025-05-14 11:20] VITALS: BP 200/85
--- NOTE | 2025-05-14 13:00 | ED.GENMED ---
History of Present Illness
General
Chief Complaint: Skin Surface Trauma
Source: patient
Exam Limitations: none
Time Seen by Provider: 05/14/25 11:55
History of Present Illness
History of Present Illness:
Patient hit her right arm against a door. Laceration. Has not had tetanus but refuses it. Aware of the risks including from tetanus no other injury or complaint
Past History
Past History
ED Past Medical History: CAD, GERD, HTN, Hypercholesterolemia, NIDDM, [place], Psychiatric (Anxiety, ) and Other (UTi, )
ED Past Surgical History: Cardiac (Stents x 2), Orthopedic ( bilateral subclavian artery stenosis 75% with the right subclavian with surgical mesh placed, Left knee replacement) and Other (L Carotid surg, cataracts, )
Social History
Tobacco: Former smoker
Alcohol: Daily (beer X 2)
Drug: None
Personal:
Living: alone
Employment: Retired
Family History
Family History: Hypertension
Review of Systems
Review of Systems
All Other Systems: Not applicable
Phy Exam
Physical Exam
Physical Exam:
General: Nontoxic appearing in no distress
Skin: Warm and dry, no rash
Neuro: Alert, nontoxic, grossly nonfocal
Psychiatric: Good eye contact and appropriate
Musculoskeletal: Ecchymosis and large V shaped flap to the left mid forearm. Motor or sensory neurovascular intact. No obvious deep bony tenderness.
Course
Orders/Labs/Results
Orders:
Orders
05/14/25 12:43
Forearm, Right 2 View [CR Forearm - Right 2 View] Urgent
Comment:
Reason For Exam: trauma
Vital Signs
Initial and Last Documented VS:
Initial Vital Signs
Temp Pulse Resp BP Pulse Ox
98.4 F 67 18 200/85 98
05/14/25 11:20 05/14/25 11:20 05/14/25 11:20 05/14/25 11:20 05/14/25 11:20
Last Documented Vital Signs
Temp Pulse Resp BP Pulse Ox
98.4 F 67 18 200/85 98
05/14/25 11:20 05/14/25 11:20 05/14/25 11:20 05/14/25 11:20 05/14/25 13:02
Procedures
Laceration Closure
Left mid forearm:
Status of Wound: clean
Size of Wound in cm: 10
Description of Wound Edges: sharp
Preparation: cleaned with saline
Revision/Debridement: routine- no revision
Wound exploration: explored to base- no FB
Type of Closure: Dermabond-skin glue and other (Steri-Strips)
MDM/Problems Addressed
Differential Diagnosis Includes:
X-ray for completeness. Low suspicions for bony injury.
*Radiology
Radiology exam reviewed: preliminary read by ED provider (Negative)
*Pulse Oximetry
SaO2: 98
Oxygen Mode of Delivery: Room air
Patient hypoxic: no
*Critical Care Note
Total Time (30-74mins, 75-104mins- exclusive of procedures): Not Applicable
ED Attending Note
-
Portions of this chart may have been created with voice recognition software.� Occasional wrong word or��sound alike� substitutions may have occurred due to the inherent limitations of voice recognition software.
Discharge Plan
Departure
Patient Disposition: Home (Routine Discharge)
Date of Disposition: 05/14/25
Time of Disposition: 13:18
Patient with high blood pressure during this ER visit?: Yes
Discharge Problem:
Large skin tear right forearm
Instructions: Laceration Repair With Glue (DC), BLOOD PRESSURE
Prescriptions:
No Action
acarbose 50 mg Tablet
25 mg PO BID AT 0800,1700 Qty: 30 0RF
carvedilol 12.5 mg Tablet
12.5 mg PO BID Qty: 30 0RF
prednisone 5 mg Tablet
5 mg PO DAILY Qty: 30 0RF
amlodipine 2.5 mg Tablet
2.5 mg PO DAILY Qty: 30 0RF
ascorbic acid (vitamin C) [Vitamin C] 500 mg Tablet
500 mg PO DAILY Qty: 30 0RF
nitroglycerin 0.4 mg Tablet, Sublingual
0.4 mg sublingual [id number] PRN (Reason: chest pain ) Qty: 30 0RF
cholecalciferol (vitamin D3) 50 mcg (2,000 unit) Tablet
50 mcg PO DAILY Qty: 30 0RF
aspirin 81 mg Tablet,Chewable
81 mg PO DAILY Qty: 0 0RF
clopidogrel 75 mg Tablet
75 mg PO DAILY Qty: 30 0RF
oseltamivir [Tamiflu] 75 mg capsule
75 mg PO BID Qty: 10 0RF
Referrals:
Lui Cherry MD [Family Provider, Family Practice] - Follow up in 2-3 days
Interventions
Interventions:
*Risk Screen - Suicide Last Done: 05/14/25 11:20
*General Assessment Last Done: 05/14/25 11:47
*Neglect/Abuse Screening Last Done: 05/14/25 11:47
*ED- Fall Risk Assessment Last Done: 05/14/25 11:47
*ED COVID-19 Vaccine History Last Done: 05/14/25 11:47
ED-Skin Assessment Last Done: 05/14/25 11:51
Discharge Date and Time
Print Language: FRISIAN
[2025-05-14 13:57] VITALS: BP 186/78
== END 2025-05-14 14:00 | disposition home or self-care (01) ==
LOC: EMR 11:16
PROVIDERS: EMERGENCY PHYSICIAN Emergency Medicine; FAMILY PHYSICIAN Family Medicine
DX: S51.812A Laceration without foreign body of left forearm, initial encounter (principal); W22.8XXA Striking against or struck by other objects, initial encounter; E11.9 Type 2 diabetes mellitus without complications; I25.10 Atherosclerotic heart disease of native coronary artery without angina pectoris; I10 Essential (primary) hypertension; E78.00 Pure hypercholesterolemia, unspecified; K21.9 Gastro-esophageal reflux disease without esophagitis; F41.9 Anxiety disorder, unspecified; I25.2 Old myocardial infarction; Z79.82 Long term (current) use of aspirin; Z79.02 Long term (current) use of antithrombotics/antiplatelets; Z95.5 Presence of coronary angioplasty implant and graft; Z87.891 Personal history of nicotine dependence; Z96.652 Presence of left artificial knee joint; Z82.49 Family history of ischemic heart disease and other diseases of the circulatory system
CPT/HCPCS: 99283; 12004; 73090